=== PATIENT | male | born 1965 | race African-American/Black ===

== ENCOUNTER 2016-10-11 11:57 | Inpatient (IN) | payer BC ==
[2016-10-11 12:57] VITALS: BMI 33.7
--- NOTE | 2016-10-11 17:16 | HP ---
COWS - Scale Resting Pulse: 0= [place] 80 or Below Sweatin=Flushed/Facial Moisture Restless Observation: 1= Difficult to Sit Still Pupil Size: 0= Normal to Room Light Bone or Joint Aches: 2= Severe Diffuse Aches Runny Nose/ Eye Tearin= Runny Nose/Eyes GI Upset > 30mins: 2= Nausea/Diarrhea Tremor Observation: 2= Slight Tremor Visible Yawning Observation: 2= >3x During Session Anxiety or Irritability: 2=Irritable/Anxious Goose Flesh Skin: 3=Piloerection COWS Score: 18 CIWA Score - CIWA Score Nausea/Vomitin-No Nausea/No Vomiting Muscle Tremors: 4-Moderate,w/Arms Extend Anxiety: 3 Agitation: 4-Moderately Restless Paroxysmal Sweats: 3 Orientation: 0-Oriented Tacttile Disturbances: 0-None Auditory Disturbances: 0-None Visual Disturbances: 0-None Headache: 1-Very Mild CIWA-Ar Total Score: 15 Admission ROS BHS - HPI Chief Complaint: I need to stop using and get detox and then go to rehab. Allergies/Adverse Reactions: Allergies Allergy/AdvReac Type Severity Reaction Status Date / Time No Known Allergies Allergy Verified 10/11/16 16:50 History of Present Illness: pt is a 51yr old male with a history of heroin and alcohol dependence seeking detox for treatment. this is his first time in our detox facility. last detox was at [facility] 3months ago. Exam Limitations: No Limitations - Ebola screening Have you traveled outside of the country in the last 21 days: No Have you had contact with anyone from an Ebola affected area: No Have you been sick,other than usual withdrawal symptoms: No - Review of Systems Constitutional: Chills, Diaphoresis, Night Sweats, Unintentional Wgt. Loss EENT: reports: Tearing, Nose Congestion Respiratory: reports: No Symptoms reported Cardiac: reports: No Symptoms Reported GI: reports: Diarrhea, Poor Appetite, Poor Fluid Intake : reports: No Symptoms Reported Musculoskeletal: reports: No Symptoms Reported Integumentary: reports: Bruising, Flushing, Sweating Neuro: reports: Headache, Tingling, Tremors Endocrine: reports: Excessive Sweating, Flushing, Intolerance to Cold, Intolerance to Heat Hematology: reports: No Symptoms Reported Psychiatric: reports: No Sypmtoms Reported, Judgement Intact, Mood/Affect Appropiate, Orientated x3, Agitated, Anxious Other Systems: Reviewed and Negative Patient History - Patient Medical History Hx Anemia: No Hx Asthma: No Hx Chronic Obstructive Pulmonary Disease (COPD): No Hx Cancer: No Hx Cardiac Disorders: No Hx Congestive Heart Failure: No Hx Hypertension: No Hx Hypercholesterolemia: No Hx Pacemaker: No HX Cerebrovascular Accident: No Hx Seizures: No Hx Dementia: No Hx Diabetes: No Hx Gastrointestinal Disorders: No Hx Liver Disease: No Hx Genitourinary Disorders: No Hx Sexually Transmitted Disorders: No Hx Renal Disease (ESRD): No Hx Thyroid Disease: No Hx Human Immunodeficiency Virus (HIV): No (negative ) Hx Hepatitis C: No (negative) Hx Depression: No Hx Suicide Attempt: No (denies) Hx Bipolar Disorder: No Hx Schizophrenia: No - Patient Surgical History Past Surgical History: Yes Hx Neurologic Surgery: No Hx Cataract Extraction: No Hx Cardiac Surgery: No Hx Lung Surgery: No Hx Breast Surgery: No Hx Breast Biopsy: No Hx Abdominal Surgery: No Hx Appendectomy: No Hx Cholecystectomy: No Hx Genitourinary Surgery: No Hx Section: No Hx Orthopedic Surgery: Yes (right hip replacement in 01/2016/left hip replacement in 10/2015) Other Surgical History: torn cartilage, left knee in 10/2015, right rotator cuff in 2003 - PPD History Previous Implant?: Yes Documented Results: Positive w/o proof Implanted On Prior [facility] Admission?: No PPD to be Administered?: No - Reproductive History Patient is a Female of Child Bearing Age (11 -55 yrs old): No - Smoking Cessation Smoking history: Current every day smoker Have you smoked in the past 12 months: Yes Aproximately how many cigarettes per day: 10 Hx Chewing Tobacco Use: No Initiated information on smoking cessation: Yes 'Breaking Loose' booklet given: 10/11/16 - Substance & Tx. History Hx Alcohol Use: Yes Hx Substance Use: Yes Substance Use Type: Alcohol, Cocaine, Heroin Hx Substance Use Treatment: Yes (last detox at [facility] 3months ago) - Substances Abused Heroin Route: Inhalation Frequency: Daily Amount used: 6-7 bags Age of first use: 32 Date of Last Use: 10/11/16 Cocaine Route: Smoking Frequency: Daily Amount used: $50 Age of first use: 48 Date of Last Use: 10/09/16 Alcohol-vodka Route: Oral Frequency: Daily Amount used: 1 1/2 pts vodka Age of first use: 13 Date of Last Use: 10/10/16 Family Disease History - Family Disease History Family Disease History: Heart Disease: Mother Admission Physical Exam [facility] - Vital Signs Vital Signs: Vital Signs - 24 hr 10/11/16 10/11/16 12:56 12:57 Temperature 97.1 F L 97.1 F L Pulse Rate 71 71 Respiratory 18 18 Rate Blood Pressure 148/78 148/78 - Physical General Appearance: Yes: Appropriately Dressed, Moderate Distress, Obese, Tremorous, Irritable, Sweating, Anxious HEENTM: Yes: Normal Voice, Nasal Congestion, Rhinorrhea Respiratory: Yes: Lungs Clear, Normal Breath Sounds, No Respiratory Distress Neck: Yes: No masses,lesions,Nodules Breast: Yes: Within Normal Limits Cardiology: Yes: Regular Rhythm, Regular Rate, S1, S2 Abdominal: Yes: Normal Bowel Sounds, Non Tender, Soft Genitourinary: Yes: Within Normal Limits Back: Yes: Normal Inspection Musculoskeletal: Yes: full range of Motion, Gait Steady Extremities: Yes: Normal Capillary Refill, Normal Inspection, Non-Tender, Tremors Neurological: Yes: Fully Oriented, Alert, Normal Response Integumentary: Yes: Normal Color, Diaphoresis Lymphatic: Yes: Within Normal Limits - Diagnostic (1) Alcohol dependence with uncomplicated withdrawal Current Visit: Yes Status: Chronic (2) Opioid dependence with withdrawal Current Visit: Yes Status: Chronic (3) Cocaine dependence, uncomplicated Current Visit: Yes Status: Chronic (4) Nicotine dependence Current Visit: Yes Status: Chronic Qualifiers: Nicotine product type: cigarettes Substance use status: uncomplicated Qualified Code(s): F17.210 - Nicotine dependence, cigarettes, uncomplicated (5) PPD positive Current Visit: Yes Status: Chronic Comment: chest x-ray ordered (6) Hypothyroid Current Visit: Yes Status: Chronic Qualifiers: Hypothyroidism type: acquired Qualified Code(s): E03.9 - Hypothyroidism, unspecified (7) H/O sleep apnea Current Visit: No Status: Chronic Comment: pt does not use a sleep apnea machine (8) History of left hip replacement Current Visit: No Status: Chronic (9) History of right hip replacement Current Visit: No Status: Chronic Cleared for Admission [facility] - Detox or Rehab [facility] Level of Care: Medically Managed Detox Regimen/Protocol: Methadone/Librium BHS Breath Alcohol Content Breath Alcohol Content: 0 Urine Drug Screen - Results Drug Screen Negative: No Urine Drug Screen Results: AGUSTIN-Cocaine, OPI-Opiates, OXY-Oxycodone
[2016-10-11] MEDS ORDERED: MAGNESIUM HYDROX 2400MG/30ML ORAL SUSPENSION 30 ML CUP PO PRN (17:23)
[2016-10-11] MEDS ORDERED: ACETAMINOPHEN 325 MG TABLET (FP) PO PRN (17:23)
[2016-10-11] MEDS ORDERED: MAGNESIUM CITRATE 300 ML BOTTLE PO PRN (17:23)
[2016-10-11] MEDS ORDERED: P-EPHED 60MG/TRIPROLIDI 2.5MG TABLET PO PRN (17:23)
[2016-10-11] MEDS ORDERED: LOPERAMIDE HCL 2 MG CAPSULE PO PRN (17:23)
[2016-10-11] MEDS ORDERED: NICOTINE POLACRILEX 4 MG GUM BC PRN (17:23)
[2016-10-11] MEDS ORDERED: MAG HYDROX/AL HYDROX/SIMETH 30 ML UNIT-DOSE CUP PO PRN (17:23)
[2016-10-11] MEDS ORDERED: MENTHOL/PHENOL 1 EACH UD MM PRN (17:23)
[2016-10-11] MEDS ORDERED: IBUPROFEN 400 MG TABLET (FP) PO PRN (17:23)
[2016-10-11] MEDS ORDERED: IBUPROFEN 600 MG TABLET (FP) PO PRN (17:26)
[2016-10-11] MEDS: chlordiazePOXIDE HCL 25 MG CAPSULE PO SCH ×2 (18:10→22:25)
[2016-10-11] MEDS ORDERED: METHADONE HCL 10 MG TABLET (FOR DETOX USE ONLY) PO ONE ×2 (18:15→23:00)
[2016-10-11] MEDS ORDERED: chlordiazePOXIDE HCL 25 MG CAPSULE PO ONE (18:15)
[2016-10-11] MEDS: THIAMINE HCL 100 MG TABLET (FP) PO SCH (22:25)
[2016-10-12 00:07] LABS: URINE APPEARANCE SLCLOUDY; URINE BILIRUBIN NEGATIVE (NEGATIVE); URINE BLOOD NEGATIVE (NEGATIVE); URINE COLOR DKYELLOW; URINE GLUCOSE (UA) NEGATIVE (NEGATIVE); URINE KETONE NEGATIVE (NEGATIVE); URINE LEUK ESTERASE NEGATIVE (NEGATIVE); URINE NITRITE NEGATIVE (NEGATIVE); URINE PROTEIN NEGATIVE (NEGATIVE); URINE UROBILINOGEN 4.0 E.U/dl E.U./dl (0.2-1.0)
[2016-10-12] MEDS: chlordiazePOXIDE HCL 25 MG CAPSULE PO SCH ×4 (05:52→22:35)
[2016-10-12] MEDS: LEVOTHYROXINE NA 100 MCG TABLET (FP) PO SCH (07:03)
[2016-10-12] MEDS ORDERED: METHADONE HCL 10 MG TABLET (FOR DETOX USE ONLY) PO SCH (10:00)
--- NOTE | 2016-10-12 10:01 | EKG ---
Test Reason : Blood Pressure : / mmHG Vent. Rate : 059 BPM Atrial Rate : 059 BPM P-R Int : 170 ms QRS Dur : 100 ms QT Int : 420 ms P-R-T Axes : 032 035 051 degrees QTc Int : 415 ms SINUS BRADYCARDIA WITH OCCASIONAL PREMATURE VENTRICULAR COMPLEXES NONSPECIFIC T WAVE ABNORMALITY ABNORMAL ECG NO PREVIOUS ECGS AVAILABLE Confirmed by DAVID KAPLAN MD ([id number]) on 10/12/2016 10:00:51 AM Referred By: Confirmed By:DAVID KAPLNA MD
[2016-10-12 10:15] LABS: MCH 31.9 pg (25.7-33.7); MCHC 34.5 g/dl (32.0-35.9); MEAN CELL VOLUME 92.4 fl (80-96); MEAN PLT VOLUME 10.2 fl (7.5-11.1); PLATELET COUNT 223 K/MM3 (134-434); RDW 13.6 % (11.9-15.9); WHITE BLOOD COUNT 8.9 K/mm3 (4.0-10.0)
[2016-10-12] MEDS: PRENATAL VITAMINS W/ FOLIC ACID TABLET (FP) PO SCH (10:31)
[2016-10-12] MEDS: NICOTINE 21 MG/24 HOURS TOPICAL PATCH TD SCH (10:34)
[2016-10-12 11:15] LABS: ALBUMIN 3.7 g/dl (3.4-5.0); ALK PHOS 132 U/L (45-117); ANION GAP 10 (8-16); BILIRUBIN,TOTAL 0.5 mg/dL (0.2-1.0); CALCIUM 8.5 mg/dL (8.5-10.1); CO2 27 mmol/L (21-32); GLUCOSE,RANDOM 140 mg/dL (74-106); SGOT/AST 19 U/L (15-37); SGPT/ALT 25 U/L (12-78); TOT PROT 7.3 g/dl (6.4-8.2)
[2016-10-12] MEDS ORDERED: COLLOIDAL OATMEAL 1 BAR EACH TP PRN (11:50)
[2016-10-12] MEDS ORDERED: SODIUM CHLORIDE NASAL SPRAY 44 ML BOTTLE NS PRN (11:55)
[2016-10-12] MEDS ORDERED: ONDANSETRON *ODT* 4 MG TABLET SL PRN (12:04)
[2016-10-12] MEDS ORDERED: CYCLOBENZAPRINE HCL 10 MG TABLET (FP) PO PRN (12:45)
[2016-10-12] MEDS: AMMONIUM LACTATE 12% LOTION 225 GM BOTTLE TP SCH (13:51)
--- NOTE | 2016-10-12 16:10 | PN ---
S CIWA - CIWA Score Nausea/Vomitin Muscle Tremors: 1-None Visible, but [place] Anxiety: 4-Mod. Anxious/Guarded Agitation: 3 Paroxysmal Sweats: 3 Orientation: 0-Oriented Tacttile Disturbances: 3-Moderate Itch/Numb/Burn Auditory Disturbances: 0-None Visual Disturbances: 2-Mild Sensitivity Headache: 0-None Present CIWA-Ar Total Score: 19 S COWS - Scale Resting Pulse: 0= [place] 80 or Below Sweatin=Flushed/Facial Moisture Restless Observation: 1= Difficult to Sit Still Pupil Size: 0= Normal to Room Light Bone or Joint Aches: 2= Severe Diffuse Aches Runny Nose/ Eye Tearin= Nasal Congestion GI Upset > 30mins: 2= Nausea/Diarrhea Tremor Observation of Outstretched Hands: 2= Slight Tremor Visible Yawning Observation: 2= >3x During Session Anxiety or Irritability: 2=Irritable/Anxious Goose Flesh Skin: 0=Smooth Skin COWS Score: 14 S Progress Note (SOAP) Subjective: Nausea, Interrupted sleep, Diarrhea, Anxious, Sweating, Body Aches. Objective: PT. A & O X 3, OBSERVED AMBULATING ON UNIT. NO ACUTE DISTRESS. PATIENT DENIES CHEST PAIN. 10/12/16 16:06 Vital Signs Temperature 99.1 F 10/12/16 14:06 Pulse Rate 58 L 10/12/16 14:06 Respiratory Rate 18 10/12/16 14:06 Blood Pressure 151/89 10/12/16 14:06 O2 Sat by Pulse Oximetry (%) Laboratory Tests 10/11/16 10/12/16 10/12/16 20:22 06:10 06:10 WBC 8.9 RBC 3.93 L Hgb 12.5 Hct 36.3 MCV 92.4 MCHC 34.5 RDW 13.6 Plt Count 223 MPV 10.2 Sodium 141 Potassium 3.7 Chloride 104 Carbon Dioxide 27 Anion Gap 10 BUN 12 Creatinine 1.0 Creat Clearance w eGFR > 60 Random Glucose 140 H Calcium 8.5 Total Bilirubin 0.5 AST 19 ALT 25 Alkaline Phosphatase 132 H Total Protein 7.3 Albumin 3.7 TSH 24.50 H Urine Color Dkyellow Urine Appearance Slcloudy Urine pH 5.0 Ur Specific [place] > 1.030 H Urine Protein Negative Urine Glucose (UA) Negative Urine Ketones Negative Urine Blood Negative Urine Nitrite Negative Urine Bilirubin Negative Urine Urobilinogen 4.0 e.u/dl Ur Leukocyte Esterase Negative LABS NOTED. Assessment: 10/12/16 16:07 WITHDRAWAL SYMPTOMS. Plan: CONTINUE DETOX. BGM ACBK X 1 TOMORROW AM FOR ELEVATED ADMISSION RANDOM GLUCOSE LEVEL.
[2016-10-12] MEDS: THIAMINE HCL 100 MG TABLET (FP) PO SCH (22:35)
[2016-10-13] MEDS: diphenhydrAMINE HCL 50 MG CAPSULE PO PRN ×2 (01:52→22:02)
[2016-10-13] MEDS: chlordiazePOXIDE HCL 25 MG CAPSULE PO PRN (01:54)
[2016-10-13] MEDS: chlordiazePOXIDE HCL 25 MG CAPSULE PO SCH ×2 (05:41→10:32)
--- NOTE | 2016-10-13 07:25 | PN ---
BHS Progress Note Note: tsh noted 24 hold sythroid repeat tsh
[2016-10-13] MEDS: LEVOTHYROXINE NA 100 MCG TABLET (FP) PO SCH ×2 (07:26→09:32)
[2016-10-13] MEDS: PRENATAL VITAMINS W/ FOLIC ACID TABLET (FP) PO SCH (09:31)
[2016-10-13] MEDS: AMMONIUM LACTATE 12% LOTION 225 GM BOTTLE TP SCH (09:32)
[2016-10-13] MEDS: METHADONE HCL 5 MG TABLET (FOR DETOX USE ONLY) PO SCH (09:32)
[2016-10-13] MEDS: NICOTINE 21 MG/24 HOURS TOPICAL PATCH TD SCH (09:33)
--- NOTE | 2016-10-13 13:41 | PN ---
S CIWA - CIWA Score Nausea/Vomitin-Int. Nausea w/Dry Heave Muscle Tremors: 4-Moderate,w/Arms Extend Anxiety: 4-Mod. Anxious/Guarded Agitation: 2 Paroxysmal Sweats: No Perspiration Orientation: 0-Oriented Tacttile Disturbances: 1-Very Mild Itch/Numbness Auditory Disturbances: 0-None Visual Disturbances: 0-None Headache: 1-Very Mild CIWA-Ar Total Score: 16 BHS COWS - Scale Resting Pulse: 0= [place] 80 or Below Sweatin=Flushed/Facial Moisture Restless Observation: 3= Extraneous Movement Pupil Size: 0= Normal to Room Light Bone or Joint Aches: 2= Severe Diffuse Aches Runny Nose/ Eye Tearin= Nasal Congestion GI Upset > 30mins: 3= Vomiting/Diarrhea Tremor Observation of Outstretched Hands: 2= Slight Tremor Visible Yawning Observation: 0= None Anxiety or Irritability: 2=Irritable/Anxious Goose Flesh Skin: 0=Smooth Skin COWS Score: 15 S Progress Note (SOAP) Subjective: N/V/D, generalized body ache, back pain, interrupted sleep Objective: 10/13/16 13:38 Last Vital Signs Temp Pulse Resp BP Pulse Ox 98.5 F 66 18 152/86 10/13/16 13:16 10/13/16 13:16 10/13/16 13:16 10/13/16 13:16 Laboratory Tests 10/11/16 10/12/16 10/12/16 20:22 06:10 06:10 WBC 8.9 RBC 3.93 L Hgb 12.5 Hct 36.3 MCV 92.4 MCHC 34.5 RDW 13.6 Plt Count 223 MPV 10.2 Sodium 141 Potassium 3.7 Chloride 104 Carbon Dioxide 27 Anion Gap 10 BUN 12 Creatinine 1.0 Creat Clearance w eGFR > 60 POC Glucometer Random Glucose 140 H Calcium 8.5 Total Bilirubin 0.5 AST 19 ALT 25 Alkaline Phosphatase 132 H Total Protein 7.3 Albumin 3.7 TSH 24.50 H Urine Color Dkyellow Urine Appearance Slcloudy Urine pH 5.0 Ur Specific [place] > 1.030 H Urine Protein Negative Urine Glucose (UA) Negative Urine Ketones Negative Urine Blood Negative Urine Nitrite Negative Urine Bilirubin Negative Urine Urobilinogen 4.0 e.u/dl Ur Leukocyte Esterase Negative RPR Titer 10/12/16 10/13/16 06:10 05:43 WBC RBC Hgb Hct MCV MCHC RDW Plt Count MPV Sodium Potassium Chloride Carbon Dioxide Anion Gap BUN Creatinine Creat Clearance w eGFR POC Glucometer 173 Random Glucose Calcium Total Bilirubin AST ALT Alkaline Phosphatase Total Protein Albumin TSH Urine Color Urine Appearance Urine pH Ur Specific [place] Urine Protein Urine Glucose (UA) Urine Ketones Urine Blood Urine Nitrite Urine Bilirubin Urine Urobilinogen Ur Leukocyte Esterase RPR Titer Nonreactive Labs noted: TSH 24.50 Assessment: 10/13/16 13:39 Withdrawal symptoms Noted with hypothyroidism Plan: Continue detox Hypothyroidism: continue synthroid (recommend starting synthroid at 50mcg/day, discussed with Dr. Aggarwal), follow up with PCP post discharge for monitoring/management
[2016-10-13] MEDS: chlordiazePOXIDE 5 MG CAPSULE PO SCH ×2 (17:40→22:01)
[2016-10-13] MEDS: THIAMINE HCL 100 MG TABLET (FP) PO SCH (22:01)
[2016-10-14] MEDS: chlordiazePOXIDE HCL 25 MG CAPSULE PO PRN (02:25)
[2016-10-14] MEDS: guaiFENesin/D-METHORPHAN HB 10 ML UNIT-DOSE CUPS PO PRN ×2 (02:26→22:56)
[2016-10-14] MEDS: chlordiazePOXIDE 5 MG CAPSULE PO SCH ×2 (06:05→10:23)
[2016-10-14] MEDS: LEVOTHYROXINE NA 100 MCG TABLET (FP) PO SCH (06:05)
[2016-10-14] MEDS: METHADONE HCL 5 MG TABLET (FOR DETOX USE ONLY) PO SCH (10:22)
[2016-10-14] MEDS: AMMONIUM LACTATE 12% LOTION 225 GM BOTTLE TP SCH (10:23)
[2016-10-14] MEDS: PRENATAL VITAMINS W/ FOLIC ACID TABLET (FP) PO SCH (10:23)
[2016-10-14] MEDS: NICOTINE 21 MG/24 HOURS TOPICAL PATCH TD SCH (10:25)
--- NOTE | 2016-10-14 10:56 | PN ---
BHS Progress Note (SOAP) Subjective: Sweating,interrupted sleep,restless. Objective: 10/14/16 10:54 Vital Signs - 8 hr 10/14/16 10/14/16 10/14/16 03:30 06:25 09:48 Temperature 97.6 F 97.1 F L Pulse Rate 66 62 Respiratory 19 18 19 Rate Blood Pressure 158/98 150/97 Laboratory Tests 10/11/16 10/12/16 10/12/16 20:22 06:10 06:10 WBC 8.9 RBC 3.93 L Hgb 12.5 Hct 36.3 MCV 92.4 MCHC 34.5 RDW 13.6 Plt Count 223 MPV 10.2 Sodium 141 Potassium 3.7 Chloride 104 Carbon Dioxide 27 Anion Gap 10 BUN 12 Creatinine 1.0 Creat Clearance w eGFR > 60 POC Glucometer Random Glucose 140 H Calcium 8.5 Total Bilirubin 0.5 AST 19 ALT 25 Alkaline Phosphatase 132 H Total Protein 7.3 Albumin 3.7 TSH 24.50 H Urine Color Dkyellow Urine Appearance Slcloudy Urine pH 5.0 Ur Specific [place] > 1.030 H Urine Protein Negative Urine Glucose (UA) Negative Urine Ketones Negative Urine Blood Negative Urine Nitrite Negative Urine Bilirubin Negative Urine Urobilinogen 4.0 e.u/dl Ur Leukocyte Esterase Negative RPR Titer 10/12/16 10/13/16 10/14/16 06:10 05:43 06:04 WBC RBC Hgb Hct MCV MCHC RDW Plt Count MPV Sodium Potassium Chloride Carbon Dioxide Anion Gap BUN Creatinine Creat Clearance w eGFR POC Glucometer 173 222 Random Glucose Calcium Total Bilirubin AST ALT Alkaline Phosphatase Total Protein Albumin TSH Urine Color Urine Appearance Urine pH Ur Specific [place] Urine Protein Urine Glucose (UA) Urine Ketones Urine Blood Urine Nitrite Urine Bilirubin Urine Urobilinogen Ur Leukocyte Esterase RPR Titer Nonreactive labs noted,pt. did not take synthroid as prescribed. Assessment: 10/14/16 10:55 Withdrawal sx. Plan: Continue detox TFT
[2016-10-14] MEDS: cloNIDine HCL 0.1 MG TABLET PO SCH ×2 (13:01→22:28)
[2016-10-14] MEDS: chlordiazePOXIDE HCL 10 MG CAPSULE PO SCH ×2 (17:07→22:28)
[2016-10-14] MEDS: hydrOXYzine PAMOATE 50 MG CAPSULE (FP) PO PRN (19:55)
[2016-10-14] MEDS: THIAMINE HCL 100 MG TABLET (FP) PO SCH (22:28)
[2016-10-14] MEDS: diphenhydrAMINE HCL 50 MG CAPSULE PO PRN (22:28)
[2016-10-15] MEDS: hydrOXYzine PAMOATE 50 MG CAPSULE (FP) PO PRN (00:45)
[2016-10-15] MEDS: chlordiazePOXIDE HCL 10 MG CAPSULE PO SCH ×2 (05:34→10:20)
[2016-10-15] MEDS: LEVOTHYROXINE NA 100 MCG TABLET (FP) PO SCH (06:44)
[2016-10-15] MEDS ORDERED: METHADONE HCL 10 MG TABLET (FOR DETOX USE ONLY) PO SCH (10:00)
[2016-10-15] MEDS: NICOTINE 21 MG/24 HOURS TOPICAL PATCH TD SCH (10:17)
[2016-10-15] MEDS: PRENATAL VITAMINS W/ FOLIC ACID TABLET (FP) PO SCH (10:20)
[2016-10-15] MEDS: cloNIDine HCL 0.1 MG TABLET PO SCH ×2 (10:20→22:21)
[2016-10-15] MEDS: AMMONIUM LACTATE 12% LOTION 225 GM BOTTLE TP SCH (10:22)
--- NOTE | 2016-10-15 15:08 | PN ---
BHS Progress Note (SOAP) Subjective: Sweating,interrupted sleep,restless Objective: 10/15/16 15:07 Vital Signs - 8 hr 10/15/16 10/15/16 09:22 13:15 Temperature 96.7 F L 98.6 F Pulse Rate 69 64 Respiratory 18 18 Rate Blood Pressure 144/84 135/85 Laboratory Last Values WBC 8.9 K/mm3 (4.0-10.0) 10/12/16 06:10 RBC 3.93 M/mm3 (4.00-5.60) L 10/12/16 06:10 Hgb 12.5 GM/dL (11.7-16.9) 10/12/16 06:10 Hct 36.3 % (35.4-49) 10/12/16 06:10 MCV 92.4 fl (80-96) 10/12/16 06:10 MCHC 34.5 g/dl (32.0-35.9) 10/12/16 06:10 RDW 13.6 % (11.9-15.9) 10/12/16 06:10 Plt Count 223 K/MM3 (134-434) 10/12/16 06:10 MPV 10.2 fl (7.5-11.1) 10/12/16 06:10 Sodium 141 mmol/L (136-145) 10/12/16 06:10 Potassium 3.7 mmol/L (3.5-5.1) 10/12/16 06:10 Chloride 104 mmol/L (98-107) 10/12/16 06:10 Carbon Dioxide 27 mmol/L (21-32) 10/12/16 06:10 Anion Gap 10 (8-16) 10/12/16 06:10 BUN 12 mg/dL (7-18) 10/12/16 06:10 Creatinine 1.0 mg/dL (0.7-1.3) 10/12/16 06:10 Creat Clearance w eGFR > 60 (>60) 10/12/16 06:10 POC Glucometer 166 UNITS (()) 10/15/16 06:12 Random Glucose 140 mg/dL (74-106) H 10/12/16 06:10 Calcium 8.5 mg/dL (8.5-10.1) 10/12/16 06:10 Total Bilirubin 0.5 mg/dL (0.2-1.0) 10/12/16 06:10 AST 19 U/L (15-37) 10/12/16 06:10 ALT 25 U/L (12-78) 10/12/16 06:10 Alkaline Phosphatase 132 U/L (45-117) H 10/12/16 06:10 Total Protein 7.3 g/dl (6.4-8.2) 10/12/16 06:10 Albumin 3.7 g/dl (3.4-5.0) 10/12/16 06:10 TSH 21.20 uIU/ml (0.358-3.74) H D 10/15/16 07:00 Urine Color Dkyellow 10/11/16 20:22 Urine Appearance Slcloudy 10/11/16 20:22 Urine pH 5.0 (5.0-8.0) 10/11/16 20:22 Ur Specific [place] > 1.030 (1.005-1.025) H 10/11/16 20:22 Urine Protein Negative (NEGATIVE) 10/11/16 20:22 Urine Glucose (UA) Negative (NEGATIVE) 10/11/16 20:22 Urine Ketones Negative (NEGATIVE) 10/11/16 20:22 Urine Blood Negative (NEGATIVE) 10/11/16 20:22 Urine Nitrite Negative (NEGATIVE) 10/11/16 20:22 Urine Bilirubin Negative (NEGATIVE) 10/11/16 20:22 Urine Urobilinogen 4.0 e.u/dl E.U./dl (0.2-1.0) 10/11/16 20:22 Ur Leukocyte Esterase Negative (NEGATIVE) 10/11/16 20:22 RPR Titer Nonreactive (NONREACTIVE) 10/12/16 06:10 labs noted Assessment: 10/15/16 15:08 Withdrawal sx. Plan: Continue detox
[2016-10-15] MEDS: guaiFENesin/D-METHORPHAN HB 10 ML UNIT-DOSE CUPS PO PRN (20:01)
[2016-10-15] MEDS: diphenhydrAMINE HCL 50 MG CAPSULE PO PRN (22:20)
[2016-10-15] MEDS: THIAMINE HCL 100 MG TABLET (FP) PO SCH (22:20)
[2016-10-16] MEDS: diphenhydrAMINE HCL 50 MG CAPSULE PO PRN (00:36)
[2016-10-16] MEDS ORDERED: METHADONE HCL 5 MG TABLET (FOR DETOX USE ONLY) PO SCH (06:00)
[2016-10-16 06:06] LABS: FREE T3 1.9 pg/mL (2.0-4.4)
[2016-10-16] MEDS: LEVOTHYROXINE NA 100 MCG TABLET (FP) PO SCH (07:24)
[2016-10-16 09:48] VITALS: BP 138/92; PULSE 72; TEMP 98.5
--- NOTE | 2016-10-16 12:28 | DS ---
[facility] Detox Discharge Summary Admission Date: 10/11/16 Discharge Date: 10/16/16 - History Present History: Alcohol Dependence, Cocaine Dependence, Opioid Dependence Additional Comments: ADVISED PATIENT TO FOLLOW-UP WITH [facility] AFTER DISCHARGE FROM DETOX FOR GENERAL MEDICAL ASSESSMENT. Pertinent Past History: History of Positive PPD, History of both Right and Left Hip Replacement, Sleep Apnea, Hypothyroidism. - Physical Exam Results Vital Signs: Vital Signs Temperature 98.5 F 10/16/16 09:47 Pulse Rate 72 10/16/16 09:47 Respiratory Rate 18 10/16/16 09:47 Blood Pressure 138/92 10/16/16 09:47 O2 Sat by Pulse Oximetry (%) Pertinent Admission Physical Exam Findings: WITHDRAWAL SYMPTOMS. Laboratory Tests 10/11/16 10/12/16 10/12/16 20:22 06:10 06:10 WBC 8.9 RBC 3.93 L Hgb 12.5 Hct 36.3 MCV 92.4 MCHC 34.5 RDW 13.6 Plt Count 223 MPV 10.2 Sodium 141 Potassium 3.7 Chloride 104 Carbon Dioxide 27 Anion Gap 10 BUN 12 Creatinine 1.0 Creat Clearance w eGFR > 60 POC Glucometer Random Glucose 140 H Calcium 8.5 Total Bilirubin 0.5 AST 19 ALT 25 Alkaline Phosphatase 132 H Total Protein 7.3 Albumin 3.7 Free T4 [place] TSH 24.50 H Free T3 Urine Color Dkyellow Urine Appearance Slcloudy Urine pH 5.0 Ur Specific [place] > 1.030 H Urine Protein Negative Urine Glucose (UA) Negative Urine Ketones Negative Urine Blood Negative Urine Nitrite Negative Urine Bilirubin Negative Urine Urobilinogen 4.0 e.u/dl Ur Leukocyte Esterase Negative RPR Titer 10/12/16 10/13/16 10/14/16 06:10 05:43 06:04 WBC RBC Hgb Hct MCV MCHC RDW Plt Count MPV Sodium Potassium Chloride Carbon Dioxide Anion Gap BUN Creatinine Creat Clearance w eGFR POC Glucometer 173 222 Random Glucose Calcium Total Bilirubin AST ALT Alkaline Phosphatase Total Protein Albumin Free T4 TSH Free T3 Urine Color Urine Appearance Urine pH Ur Specific [place] Urine Protein Urine Glucose (UA) Urine Ketones Urine Blood Urine Nitrite Urine Bilirubin Urine Urobilinogen Ur Leukocyte Esterase RPR Titer Nonreactive 10/15/16 10/15/16 10/15/16 06:12 07:00 07:00 WBC RBC Hgb Hct MCV MCHC RDW Plt Count MPV Sodium Potassium Chloride Carbon Dioxide Anion Gap BUN Creatinine Creat Clearance w eGFR POC Glucometer 166 Random Glucose Calcium Total Bilirubin AST ALT Alkaline Phosphatase Total Protein Albumin Free T4 [place] 0.71 L TSH 21.20 H D Free T3 1.9 L Urine Color Urine Appearance Urine pH Ur Specific [place] Urine Protein Urine Glucose (UA) Urine Ketones Urine Blood Urine Nitrite Urine Bilirubin Urine Urobilinogen Ur Leukocyte Esterase RPR Titer LABS NOTED. - Treatment Hospital Course: Detox Protocol Followed, Detoxed Safely, Responded well, Discharged Condition Good, Rehab Referral Accepted Patient has Accepted a Rehab Referral to: [facility]. - Medication Discharge Medications: Ambulatory Orders Levothyroxine Sodium [Levo-T] 300 mcg PO DAILY 10/11/16 - Diagnosis (1) Alcohol dependence with uncomplicated withdrawal Status: Acute (2) Cocaine dependence, uncomplicated Status: Acute (3) H/O sleep apnea Status: Chronic (4) History of left hip replacement Status: Chronic (5) History of right hip replacement Status: Chronic (6) Hypothyroid Status: Chronic Qualifiers: Hypothyroidism type: acquired Qualified Code(s): E03.9 - Hypothyroidism, unspecified (7) Nicotine dependence Status: Chronic Qualifiers: Nicotine product type: cigarettes Substance use status: uncomplicated Qualified Code(s): F17.210 - Nicotine dependence, cigarettes, uncomplicated (8) Opioid dependence with withdrawal Status: Acute (9) PPD positive Status: Chronic - AMA Did Patient Leave Against Medical Advice: No
== END 2016-10-16 10:31 | disposition home or self-care (01) | DRG 773 ==
LOC: YASAS 11:57 → Y3N 17:30
PROVIDERS: ADMIT Internal Medicine; ATTEND Internal Medicine
PROC: HZ2ZZZZ Detoxification Services for Substance Abuse Treatment (ICD-10-PCS; principal; 2016-10-11)
DX: F11.23 Opioid dependence with withdrawal (principal); F10.230 Alcohol dependence with withdrawal, uncomplicated; F14.20 Cocaine dependence, uncomplicated; F17.210 Nicotine dependence, cigarettes, uncomplicated; E03.9 Hypothyroidism, unspecified; E66.9 Obesity, unspecified; Z68.33 Body mass index [BMI] 33.0-33.9, adult; G47.30 Sleep apnea, unspecified; R76.11 Nonspecific reaction to tuberculin skin test without active tuberculosis; Z96.643 Presence of artificial hip joint, bilateral
CPT/HCPCS: 36415; 71020-TC; 80053; 81003; 84439; 84443; 84481; 85027; 86593; 93005; 93010

== ENCOUNTER 2016-12-17 11:34 | Inpatient (IN) | payer BC ==
[2016-12-17 12:41] VITALS: BMI 32.7
--- NOTE | 2016-12-17 15:14 | HP ---
COWS - Scale Resting Pulse: 0= [place] 80 or Below Sweatin=Flushed/Facial Moisture Restless Observation: 3= Extraneous Movement Pupil Size: 2= Moderately Dilated Bone or Joint Aches: 2= Severe Diffuse Aches Runny Nose/ Eye Tearin= Runny Nose/Eyes GI Upset > 30mins: 2= Nausea/Diarrhea Tremor Observation: 2= Slight Tremor Visible Yawning Observation: 1= 1-2x During Session Anxiety or Irritability: 2=Irritable/Anxious Goose Flesh Skin: 0=Smooth Skin COWS Score: 18 CIWA Score - CIWA Score Nausea/Vomitin Muscle Tremors: 3 Anxiety: 3 Agitation: 3 Paroxysmal Sweats: 1-Minimal Palms Moist Orientation: 0-Oriented Tacttile Disturbances: 2-Mild Itch/Numbness/Burn Auditory Disturbances: 2-Mild Harshness/Frighten Visual Disturbances: 2-Mild Sensitivity Headache: 2-Mild CIWA-Ar Total Score: 21 Admission ROS BHS - HPI Chief Complaint: i need help to stop using heroin,alcohol,and cocaine dependence Allergies/Adverse Reactions: Allergies Allergy/AdvReac Type Severity Reaction Status Date / Time No Known Allergies Allergy Verified 12/17/16 15:07 History of Present Illness: this 51 years old male with heroin,alcohol and cocaine dependence,seeking detox, [facility] to 10/16/16 multiple admissions in detox anxiety and ptsd hypothyroidism nicotine dependence s/p bilateral hips replacement longest period of sobriety 6 years Exam Limitations: No Limitations - Ebola screening Have you traveled outside of the country in the last 21 days: No Have you been sick,other than usual withdrawal symptoms: No - Review of Systems Constitutional: Chills, Loss of Appetite, Malaise, Night Sweats, Changes in sleep, Weakness EENT: reports: Tearing, Nose Congestion Respiratory: reports: No Symptoms reported Cardiac: reports: No Symptoms Reported GI: reports: Diarrhea, Nausea, Vomiting : reports: No Symptoms Reported Musculoskeletal: reports: Back Pain, Joint Pain, Muscle Pain Integumentary: reports: Dryness Neuro: reports: Headache, Tremors, Weakness Endocrine: reports: No Symptoms Reported Hematology: reports: No Symptoms Reported Psychiatric: reports: No Sypmtoms Reported, Judgement Intact, Mood/Affect Appropiate, Orientated x3, Depressed, other (ptsd) Other Systems: Reviewed and Negative Patient History - Patient Medical History Hx Anemia: No Hx Asthma: No Hx Chronic Obstructive Pulmonary Disease (COPD): No Hx Cancer: No Hx Cardiac Disorders: No Hx Congestive Heart Failure: No Hx Hypertension: No Hx Hypercholesterolemia: No Hx Pacemaker: No HX Cerebrovascular Accident: No Hx Seizures: No Hx Dementia: No Hx Diabetes: No Hx Gastrointestinal Disorders: No Hx Liver Disease: No Hx Genitourinary Disorders: No Hx Sexually Transmitted Disorders: No Hx Renal Disease (ESRD): No Hx Thyroid Disease: No Hx Human Immunodeficiency Virus (HIV): No (negative ) Hx Hepatitis C: No (negative) Hx Depression: No Hx Suicide Attempt: No (denies) Hx Bipolar Disorder: No Hx Schizophrenia: No - Patient Surgical History Past Surgical History: Yes Hx Neurologic Surgery: No Hx Cataract Extraction: No Hx Cardiac Surgery: No Hx Lung Surgery: No Hx Breast Surgery: No Hx Breast Biopsy: No Hx Abdominal Surgery: No Hx Appendectomy: No Hx Cholecystectomy: No Hx Genitourinary Surgery: No Hx Section: No Hx Orthopedic Surgery: Yes (right hip replacement in 01/2016/left hip replacement in 10/2015) Other Surgical History: torn cartilage, left knee in 10/2015, right rotator cuff in 2003 - PPD History Previous Implant?: Yes Documented Results: Positive w/proof PPD to be Administered?: No - Smoking Cessation Smoking history: Current every day smoker Have you smoked in the past 12 months: Yes Aproximately how many cigarettes per day: 10 Hx Chewing Tobacco Use: No Initiated information on smoking cessation: Yes 'Breaking Loose' booklet given: 12/17/16 - Substances Abused Heroin Route: Inhalation Frequency: Daily Amount used: 40 bags Age of first use: 32 Date of Last Use: 12/17/16 Cocaine Route: Inhalation Frequency: Daily Amount used: 1 gm. Age of first use: 38 Date of Last Use: 12/17/16 Alcohol-vodka/beer Route: Oral Frequency: Daily Amount used: 3 pts./2-6 pks. Age of first use: 10 Date of Last Use: 12/15/16 Family Disease History - Family Disease History Family Disease History: Heart Disease: Mother Admission Physical Exam BHS - Vital Signs Vital Signs: Vital Signs - 24 hr 12/17/16 12:39 Temperature 98.5 F Pulse Rate 67 Respiratory 18 Rate Blood Pressure 103/67 - Physical General Appearance: Yes: Moderate Distress, Tremorous, Irritable, Sweating, Anxious HEENTM: Yes: Normal ENT Inspection, MICHAEL, Pharynx Normal Respiratory: Yes: Lungs Clear, Normal Breath Sounds, No Respiratory Distress Neck: Yes: Within Normal Limits, Other (hypothyroidism) Breast: Yes: Within Normal Limits Cardiology: Yes: Within Normal Limits, Regular Rhythm, Regular Rate, S1, S2 Abdominal: Yes: Within Normal Limits, Normal Bowel Sounds, Non Tender, Flat, Soft Genitourinary: Yes: Within Normal Limits Back: Yes: Muscle Spasm Musculoskeletal: Yes: Back pain, Muscle Pain Extremities: Yes: Within Normal Limits, Normal Range of Motion, Tremors Neurological: Yes: senior technical project manager II-XII NML intact, Fully Oriented, Alert, Motor Strength 5/5 Integumentary: Yes: Dry Lymphatic: Yes: Within Normal Limits - Diagnostic (1) Opioid dependence with withdrawal Current Visit: No Status: Acute (2) Alcohol dependence with uncomplicated withdrawal Current Visit: No Status: Acute (3) Cocaine dependence, uncomplicated Current Visit: No Status: Acute (4) H/O sleep apnea Current Visit: No Status: Chronic Comment: pt does not use a sleep apnea machine (5) History of left hip replacement Current Visit: No Status: Chronic (6) History of right hip replacement Current Visit: No Status: Chronic (7) Hypothyroid Current Visit: No Status: Chronic Qualifiers: Hypothyroidism type: acquired Qualified Code(s): E03.9 - Hypothyroidism, unspecified (8) Nicotine dependence Current Visit: No Status: Chronic Qualifiers: Nicotine product type: cigarettes Substance use status: uncomplicated Qualified Code(s): F17.210 - Nicotine dependence, cigarettes, uncomplicated (9) PPD positive Current Visit: No Status: Chronic Comment: chest x-ray ordered Cleared for Admission [facility] - Detox or Rehab [facility] Level of Care: Medically Managed Detox Regimen/Protocol: Methadone/Librium [facility] Breath Alcohol Content Breath Alcohol Content: 0 Urine Drug Screen - Results Drug Screen Negative: No Urine Drug Screen Results: AGUSTIN-Cocaine, OPI-Opiates
[2016-12-17] MEDS ORDERED: MAG HYDROX/AL HYDROX/SIMETH 30 ML UNIT-DOSE CUP PO PRN (15:28)
[2016-12-17] MEDS ORDERED: guaiFENesin/D-METHORPHAN HB 10 ML UNIT-DOSE CUPS PO PRN (15:28)
[2016-12-17] MEDS ORDERED: MENTHOL/PHENOL 1 EACH UD MM PRN (15:28)
[2016-12-17] MEDS ORDERED: NICOTINE POLACRILEX 2 MG GUM BC PRN (15:28)
[2016-12-17] MEDS ORDERED: MAGNESIUM HYDROX 2400MG/30ML ORAL SUSPENSION 30 ML CUP PO PRN (15:28)
[2016-12-17] MEDS ORDERED: LOPERAMIDE HCL 2 MG CAPSULE PO PRN (15:28)
[2016-12-17] MEDS ORDERED: ACETAMINOPHEN 325 MG TABLET (FP) PO PRN (15:28)
[2016-12-17] MEDS ORDERED: MAGNESIUM CITRATE 300 ML BOTTLE PO PRN (15:28)
[2016-12-17] MEDS ORDERED: P-EPHED 60MG/TRIPROLIDI 2.5MG TABLET PO PRN (15:28)
[2016-12-17] MEDS ORDERED: IBUPROFEN 400 MG TABLET (FP) PO PRN (15:28)
[2016-12-17] MEDS ORDERED: chlordiazePOXIDE HCL 25 MG CAPSULE PO ONE (16:00)
[2016-12-17] MEDS ORDERED: METHADONE HCL 10 MG TABLET (FOR DETOX USE ONLY) PO ONE ×2 (16:15→23:00)
[2016-12-17] MEDS: chlordiazePOXIDE HCL 25 MG CAPSULE PO SCH ×2 (16:54→22:21)
[2016-12-17] MEDS: NICOTINE 21 MG/24 HOURS TOPICAL PATCH TD SCH (16:56)
[2016-12-17] MEDS: diphenhydrAMINE HCL 50 MG CAPSULE PO PRN (22:20)
[2016-12-17] MEDS: THIAMINE HCL 100 MG TABLET (FP) PO SCH (22:20)
[2016-12-17] MEDS: CYCLOBENZAPRINE HCL 10 MG TABLET (FP) PO PRN (22:21)
[2016-12-17] MEDS: cloNIDine HCL 0.1 MG TABLET PO SCH (22:21)
[2016-12-18] MEDS: chlordiazePOXIDE HCL 25 MG CAPSULE PO SCH ×4 (05:58→22:27)
[2016-12-18] MEDS: LEVOTHYROXINE NA 100 MCG TABLET (FP) PO SCH (06:59)
--- NOTE | 2016-12-18 07:37 | CONSULT ---
[facility] Psychiatric Consult - Data Date of interview: 12/18/16 Admission source: [facility] Identifying data: This is 51 years old male with no psychiatrioc hospitalization history intoxicated with: Opioids, Cocaine and Nicotine Substance Abuse History: Drug Screen Negative: No. Urine Drug Screen Results: AGUSTIN-Cocaine, OPI-Opiates. - Smoking Cessation. Smoking history: Current every day smoker. Have you smoked in the past 12 months: Yes. Aproximately how many cigarettes per day: 10. Hx Chewing Tobacco Use: No. Initiated information on smoking cessation: Yes. 'Breaking Loose' booklet given: 12/17/16 Medical History: PPD + history, Hypothyroiditis, Bilateral Hip Replacement syrgery history, Psychiatric History: Reports history of anxiety, depression and insomnia. Reports taking prior to admission: Trazodone 50mg po qhs Physical/Sexual Abuse/Trauma History: Denies Additional Comment: Drug Screen Negative: No. Urine Drug Screen Results: AGUSTIN- Cocaine, OPI-Opiates Mental Status Exam - Mental Status Exam Alert and Oriented to: Person Cognitive Function: Fair Patient Appearance: Unkempt Mood: Anxious Affect: Mood Congruent Patient Behavior: Talkative Speech Pattern: Appropriate Voice Loudness: Mildly Soft/Quiet Thought Process: Circumstantial Thought Disorder: Being Controlled Hallucinations: Denies Suicidal Ideation: Denies Homicidal Ideation: Denies Insight/Judgement: Fair Sleep: Difficulty falling asleep Appetite: Fair Muscle strength/Tone: Mild Hypotonicity Gait/Station: Shuffling Additional Comments: Trazodone 50mg po qhs Psychiatric Findings - Problem List ([place] 1, 2,3) (1) Alcohol dependence with uncomplicated withdrawal Current Visit: No Status: Acute (2) Cocaine dependence, uncomplicated Current Visit: No Status: Acute (3) Opioid dependence with withdrawal Current Visit: No Status: Acute (4) Nicotine dependence Current Visit: No Status: Chronic Qualifiers: Nicotine product type: cigarettes Substance use status: uncomplicated Qualified Code(s): F17.210 - Nicotine dependence, cigarettes, uncomplicated (5) Drug-induced mood disorder Current Visit: Yes Status: Acute - Initial Treatment Plan Initial Treatment Plan: Trazodone 50mg po qhs
[2016-12-18] MEDS ORDERED: TRIMETHOBENZAMIDE HCL 200MG/2ML INJ IM PRN (09:54)
[2016-12-18] MEDS ORDERED: METHADONE HCL 10 MG TABLET (FOR DETOX USE ONLY) PO SCH (10:00)
[2016-12-18 10:07] LABS: MCH 30.9 pg (25.7-33.7); MCHC 33.6 g/dl (32.0-35.9); MEAN CELL VOLUME 91.9 fl (80-96); MEAN PLT VOLUME 9.2 fl (7.5-11.1); PLATELET COUNT 211 K/MM3 (134-434); RDW 13.5 % (11.9-15.9); WHITE BLOOD COUNT 8.3 K/mm3 (4.0-10.0)
[2016-12-18 10:32] LABS: ALBUMIN 3.3 g/dl (3.4-5.0); ANION GAP 7 (8-16); CALCIUM 9.1 mg/dL (8.5-10.1); CO2 31 mmol/L (21-32)
[2016-12-18 10:37] LABS: ALK PHOS 99 U/L (45-117); BILIRUBIN,TOTAL 0.7 mg/dL (0.2-1.0); CREATININE 1.1 mg/dL (0.7-1.3); GLUCOSE,RANDOM 164 mg/dL (74-106); SGOT/AST 9 U/L (15-37); SGPT/ALT 18 U/L (12-78); TOT PROT 6.8 g/dl (6.4-8.2)
[2016-12-18] MEDS: PRENATAL VITAMINS W/ FOLIC ACID TABLET (FP) PO SCH (10:50)
[2016-12-18] MEDS: cloNIDine HCL 0.1 MG TABLET PO SCH ×2 (10:50→22:27)
[2016-12-18] MEDS: CYCLOBENZAPRINE HCL 10 MG TABLET (FP) PO PRN ×2 (11:00→22:27)
--- NOTE | 2016-12-18 11:36 | EKG ---
Test Reason : Blood Pressure : / mmHG Vent. Rate : 057 BPM Atrial Rate : 057 BPM P-R Int : 164 ms QRS Dur : 090 ms QT Int : 448 ms P-R-T Axes : 044 048 060 degrees QTc Int : 436 ms SINUS BRADYCARDIA OTHERWISE NORMAL ECG WHEN COMPARED WITH ECG OF 11-OCT-2016 17:11, PREMATURE VENTRICULAR COMPLEXES ARE NO LONGER PRESENT NONSPECIFIC T WAVE ABNORMALITY, IMPROVED IN LATERAL LEADS Confirmed by SHANEL ROJAS, JONO ([id number]) on 12/18/2016 11:35:53 AM Referred By: Marquise Kaye Confirmed By:JONO UGARTE MD
[2016-12-18] MEDS: chlordiazePOXIDE HCL 25 MG CAPSULE PO PRN ×2 (12:16→12:19)
[2016-12-18] MEDS: NICOTINE 21 MG/24 HOURS TOPICAL PATCH TD SCH (12:17)
[2016-12-18] MEDS: hydrOXYzine PAMOATE 50 MG CAPSULE (FP) PO PRN (12:19)
--- NOTE | 2016-12-18 12:34 | PN ---
[facility] CIWA - CIWA Score Nausea/Vomitin-Int. Nausea w/Dry Heave Muscle Tremors: 3 Anxiety: 3 Agitation: 3 Paroxysmal Sweats: 1-Minimal Palms Moist Orientation: 0-Oriented Tacttile Disturbances: 1-Very Mild Itch/Numbness Auditory Disturbances: 1-Very Mild Visual Disturbances: 1-Very Mild Sensitivity Headache: 2-Mild CIWA-Ar Total Score: 19 BHS COWS - Scale Resting Pulse: 0= [place] 80 or Below Sweatin= Chills/Flushing Restless Observation: 3= Extraneous Movement Pupil Size: 1= Pupils >than Normal Bone or Joint Aches: 2= Severe Diffuse Aches Runny Nose/ Eye Tearin= Runny Nose/Eyes GI Upset > 30mins: 2= Nausea/Diarrhea Tremor Observation of Outstretched Hands: 2= Slight Tremor Visible Yawning Observation: 1= 1-2x During Session Anxiety or Irritability: 2=Irritable/Anxious Goose Flesh Skin: 0=Smooth Skin COWS Score: 16 S Progress Note (SOAP) Subjective: ALERT,IRRITABLE,ANXIOUS,INTERRUPTED SLEEP,PAIN IN THE BODY BACK,NAUSEA,VOMITING, Objective: 12/18/16 12:32 Vital Signs Temperature 97.0 F L 12/18/16 09:54 Pulse Rate 53 L 12/18/16 09:54 Respiratory Rate 20 12/18/16 09:54 Blood Pressure 146/83 12/18/16 09:54 O2 Sat by Pulse Oximetry (%) Assessment: 12/18/16 12:32 EKG SINUS BRADYCARDIA 57/MIN NO CHEST PAIN,NO SOB,NO DIZZINESS Laboratory Last Values WBC 8.3 K/mm3 (4.0-10.0) 12/18/16 07:00 RBC 3.77 M/mm3 (4.00-5.60) L 12/18/16 07:00 Hgb 11.7 GM/dL (11.7-16.9) 12/18/16 07:00 Hct 34.7 % (35.4-49) L 12/18/16 07:00 MCV 91.9 fl (80-96) 12/18/16 07:00 MCH 30.9 pg (25.7-33.7) 12/18/16 07:00 MCHC 33.6 g/dl (32.0-35.9) 12/18/16 07:00 RDW 13.5 % (11.9-15.9) 12/18/16 07:00 Plt Count 211 K/MM3 (134-434) 12/18/16 07:00 MPV 9.2 fl (7.5-11.1) 12/18/16 07:00 Sodium 139 mmol/L (136-145) 12/18/16 07:00 Potassium 3.7 mmol/L (3.5-5.1) 12/18/16 07:00 Chloride 101 mmol/L (98-107) 12/18/16 07:00 Carbon Dioxide 31 mmol/L (21-32) 12/18/16 07:00 Anion Gap 7 (8-16) L 12/18/16 07:00 BUN 10 mg/dL (7-18) 12/18/16 07:00 Creatinine 1.1 mg/dL (0.7-1.3) 12/18/16 07:00 Creat Clearance w eGFR > 60 (>60) 12/18/16 07:00 Random Glucose 164 mg/dL (74-106) H 12/18/16 07:00 Calcium 9.1 mg/dL (8.5-10.1) 12/18/16 07:00 Total Bilirubin 0.7 mg/dL (0.2-1.0) D 12/18/16 07:00 AST 9 U/L (15-37) L D 12/18/16 07:00 ALT 18 U/L (12-78) D 12/18/16 07:00 Alkaline Phosphatase 99 U/L (45-117) D 12/18/16 07:00 Total Protein 6.8 g/dl (6.4-8.2) 12/18/16 07:00 Albumin 3.3 g/dl (3.4-5.0) L 12/18/16 07:00 Plan: WITHDRAWAL SYMPTOM,FASTING GLUCOSE IN AM
[2016-12-18] MEDS: THIAMINE HCL 100 MG TABLET (FP) PO SCH (22:27)
[2016-12-18] MEDS: traZODone HCL 50 MG TABLET (FP) PO SCH (22:27)
[2016-12-19] MEDS: chlordiazePOXIDE HCL 25 MG CAPSULE PO PRN ×2 (03:11→17:07)
[2016-12-19] MEDS: LEVOTHYROXINE NA 100 MCG TABLET (FP) PO SCH (06:11)
[2016-12-19] MEDS: chlordiazePOXIDE HCL 25 MG CAPSULE PO SCH ×2 (06:11→11:22)
[2016-12-19] MEDS: NICOTINE 21 MG/24 HOURS TOPICAL PATCH TD SCH (11:00)
--- NOTE | 2016-12-19 11:08 | PN ---
[facility] CIWA - CIWA Score Nausea/Vomitin Muscle Tremors: 3 Anxiety: 3 Agitation: 2 Paroxysmal Sweats: 1-Minimal Palms Moist Orientation: 0-Oriented Tacttile Disturbances: 1-Very Mild Itch/Numbness Auditory Disturbances: 1-Very Mild Visual Disturbances: 0-None Headache: 2-Mild CIWA-Ar Total Score: 16 BHS COWS - Scale Resting Pulse: 0= [place] 80 or Below Sweatin= Chills/Flushing Restless Observation: 3= Extraneous Movement Pupil Size: 1= Pupils >than Normal Bone or Joint Aches: 2= Severe Diffuse Aches Runny Nose/ Eye Tearin= Runny Nose/Eyes GI Upset > 30mins: 2= Nausea/Diarrhea Tremor Observation of Outstretched Hands: 2= Slight Tremor Visible Yawning Observation: 1= 1-2x During Session Anxiety or Irritability: 2=Irritable/Anxious Goose Flesh Skin: 0=Smooth Skin COWS Score: 16 [facility] Progress Note (SOAP) Subjective: ALERT,IRRTIABLE,ANXIOUS,INTERRUPTED SLEEP,,PAIN IN THE BODY AND BACK Objective: 12/19/16 11:07 Vital Signs Temperature 98.4 F 12/19/16 09:53 Pulse Rate 102 H 12/19/16 09:53 Respiratory Rate 18 12/19/16 09:53 Blood Pressure 151/74 12/19/16 09:53 O2 Sat by Pulse Oximetry (%) Laboratory Last Values WBC 8.3 K/mm3 (4.0-10.0) 12/18/16 07:00 RBC 3.77 M/mm3 (4.00-5.60) L 12/18/16 07:00 Hgb 11.7 GM/dL (11.7-16.9) 12/18/16 07:00 Hct 34.7 % (35.4-49) L 12/18/16 07:00 MCV 91.9 fl (80-96) 12/18/16 07:00 MCH 30.9 pg (25.7-33.7) 12/18/16 07:00 MCHC 33.6 g/dl (32.0-35.9) 12/18/16 07:00 RDW 13.5 % (11.9-15.9) 12/18/16 07:00 Plt Count 211 K/MM3 (134-434) 12/18/16 07:00 MPV 9.2 fl (7.5-11.1) 12/18/16 07:00 Sodium 139 mmol/L (136-145) 12/18/16 07:00 Potassium 3.7 mmol/L (3.5-5.1) 12/18/16 07:00 Chloride 101 mmol/L (98-107) 12/18/16 07:00 Carbon Dioxide 31 mmol/L (21-32) 12/18/16 07:00 Anion Gap 7 (8-16) L 12/18/16 07:00 BUN 10 mg/dL (7-18) 12/18/16 07:00 Creatinine 1.1 mg/dL (0.7-1.3) 12/18/16 07:00 Creat Clearance w eGFR > 60 (>60) 12/18/16 07:00 Random Glucose 164 mg/dL (74-106) H 12/18/16 07:00 Calcium 9.1 mg/dL (8.5-10.1) 12/18/16 07:00 Total Bilirubin 0.7 mg/dL (0.2-1.0) D 12/18/16 07:00 AST 9 U/L (15-37) L D 12/18/16 07:00 ALT 18 U/L (12-78) D 12/18/16 07:00 Alkaline Phosphatase 99 U/L (45-117) D 12/18/16 07:00 Total Protein 6.8 g/dl (6.4-8.2) 12/18/16 07:00 Albumin 3.3 g/dl (3.4-5.0) L 12/18/16 07:00 Assessment: 12/19/16 11:08 WITHDRAWAL SYMPTOM Plan: CONTINUE DETOX,FASTING GLUCOSE IN AM,BGM BID
[2016-12-19] MEDS: METHADONE HCL 5 MG TABLET (FOR DETOX USE ONLY) PO SCH (11:22)
[2016-12-19] MEDS: cloNIDine HCL 0.1 MG TABLET PO SCH ×2 (11:22→22:16)
[2016-12-19] MEDS: PRENATAL VITAMINS W/ FOLIC ACID TABLET (FP) PO SCH (11:22)
[2016-12-19] MEDS: CYCLOBENZAPRINE HCL 10 MG TABLET (FP) PO PRN ×2 (11:22→22:16)
[2016-12-19 14:38] LABS: URINE APPEARANCE CLEAR; URINE BILIRUBIN NEGATIVE (NEGATIVE); URINE BLOOD NEGATIVE (NEGATIVE); URINE COLOR STRAW; URINE GLUCOSE (UA) NEGATIVE (NEGATIVE); URINE KETONE NEGATIVE (NEGATIVE); URINE LEUK ESTERASE NEGATIVE (NEGATIVE); URINE NITRITE NEGATIVE (NEGATIVE); URINE PROTEIN NEGATIVE (NEGATIVE); URINE UROBILINOGEN NEGATIVE mg/dL (0.2-1.0)
[2016-12-19] MEDS: chlordiazePOXIDE 5 MG CAPSULE PO SCH ×2 (17:33→22:17)
[2016-12-19] MEDS: THIAMINE HCL 100 MG TABLET (FP) PO SCH (22:16)
[2016-12-19] MEDS: traZODone HCL 50 MG TABLET (FP) PO SCH (22:16)
[2016-12-20] MEDS: chlordiazePOXIDE 5 MG CAPSULE PO SCH ×2 (06:35→10:50)
[2016-12-20] MEDS: LEVOTHYROXINE NA 100 MCG TABLET (FP) PO SCH (06:36)
[2016-12-20] MEDS: hydrOXYzine PAMOATE 50 MG CAPSULE (FP) PO PRN (10:50)
[2016-12-20] MEDS: PRENATAL VITAMINS W/ FOLIC ACID TABLET (FP) PO SCH (10:50)
[2016-12-20] MEDS: cloNIDine HCL 0.1 MG TABLET PO SCH ×2 (10:50→22:15)
[2016-12-20] MEDS: METHADONE HCL 5 MG TABLET (FOR DETOX USE ONLY) PO SCH (10:50)
[2016-12-20] MEDS: CYCLOBENZAPRINE HCL 10 MG TABLET (FP) PO PRN ×2 (10:50→22:15)
[2016-12-20] MEDS: NICOTINE 21 MG/24 HOURS TOPICAL PATCH TD SCH (10:54)
--- NOTE | 2016-12-20 12:41 | PN ---
S Progress Note (SOAP) Subjective: ALERT,IRRITABLE,ANXIOUS,INTERRUPTED SLEEP,PAIN IN THE BODY AND BACK Objective: 12/20/16 12:38 Vital Signs Temperature 98.1 F 12/20/16 10:32 Pulse Rate 71 12/20/16 10:32 Respiratory Rate 18 12/20/16 10:32 Blood Pressure 138/63 12/20/16 10:32 O2 Sat by Pulse Oximetry (%) Laboratory Last Values WBC 8.3 K/mm3 (4.0-10.0) 12/18/16 07:00 RBC 3.77 M/mm3 (4.00-5.60) L 12/18/16 07:00 Hgb 11.7 GM/dL (11.7-16.9) 12/18/16 07:00 Hct 34.7 % (35.4-49) L 12/18/16 07:00 MCV 91.9 fl (80-96) 12/18/16 07:00 MCH 30.9 pg (25.7-33.7) 12/18/16 07:00 MCHC 33.6 g/dl (32.0-35.9) 12/18/16 07:00 RDW 13.5 % (11.9-15.9) 12/18/16 07:00 Plt Count 211 K/MM3 (134-434) 12/18/16 07:00 MPV 9.2 fl (7.5-11.1) 12/18/16 07:00 Sodium 139 mmol/L (136-145) 12/18/16 07:00 Potassium 3.7 mmol/L (3.5-5.1) 12/18/16 07:00 Chloride 101 mmol/L (98-107) 12/18/16 07:00 Carbon Dioxide 31 mmol/L (21-32) 12/18/16 07:00 Anion Gap 7 (8-16) L 12/18/16 07:00 BUN 10 mg/dL (7-18) 12/18/16 07:00 Creatinine 1.1 mg/dL (0.7-1.3) 12/18/16 07:00 Creat Clearance w eGFR > 60 (>60) 12/18/16 07:00 POC Glucometer 172 UNITS (()) 12/20/16 06:35 Random Glucose 164 mg/dL (74-106) H 12/18/16 07:00 Fasting Glucose 143 mg/dL (70-105) H 12/20/16 08:00 Calcium 9.1 mg/dL (8.5-10.1) 12/18/16 07:00 Total Bilirubin 0.7 mg/dL (0.2-1.0) D 12/18/16 07:00 AST 9 U/L (15-37) L D 12/18/16 07:00 ALT 18 U/L (12-78) D 12/18/16 07:00 Alkaline Phosphatase 99 U/L (45-117) D 12/18/16 07:00 Total Protein 6.8 g/dl (6.4-8.2) 12/18/16 07:00 Albumin 3.3 g/dl (3.4-5.0) L 12/18/16 07:00 Urine Color Straw 12/19/16 11:40 Urine Appearance Clear 12/19/16 11:40 Urine pH 7.0 (5.0-8.0) D 12/19/16 11:40 Ur Specific [place] 1.015 (1.005-1.025) 12/19/16 11:40 Urine Protein Negative (NEGATIVE) 12/19/16 11:40 Urine Glucose (UA) Negative (NEGATIVE) 12/19/16 11:40 Urine Ketones Negative (NEGATIVE) 12/19/16 11:40 Urine Blood Negative (NEGATIVE) 12/19/16 11:40 Urine Nitrite Negative (NEGATIVE) 12/19/16 11:40 Urine Bilirubin Negative (NEGATIVE) 12/19/16 11:40 Urine Urobilinogen Negative mg/dL (0.2-1.0) 12/19/16 11:40 Ur Leukocyte Esterase Negative (NEGATIVE) 12/19/16 11:40 RPR Titer Nonreactive (NONREACTIVE) 12/18/16 07:00 Assessment: 12/20/16 12:39 WITHDRAWAL SYMPTOM Plan: CONTINUE DETOX,BGM MONITORING,FASTING GLUCOSE IN AM
[2016-12-20] MEDS: chlordiazePOXIDE HCL 10 MG CAPSULE PO SCH ×2 (17:15→22:15)
[2016-12-20] MEDS: traZODone HCL 50 MG TABLET (FP) PO SCH (22:15)
[2016-12-20] MEDS: THIAMINE HCL 100 MG TABLET (FP) PO SCH (22:15)
[2016-12-21] MEDS: chlordiazePOXIDE HCL 10 MG CAPSULE PO SCH ×2 (06:27→10:08)
[2016-12-21] MEDS: LEVOTHYROXINE NA 100 MCG TABLET (FP) PO SCH (06:27)
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
[2016-12-21] MEDS ORDERED: METHADONE HCL 10 MG TABLET (FOR DETOX USE ONLY) PO SCH (10:00)
[2016-12-21] MEDS: cloNIDine HCL 0.1 MG TABLET PO SCH ×2 (10:08→22:12)
[2016-12-21] MEDS: PRENATAL VITAMINS W/ FOLIC ACID TABLET (FP) PO SCH (10:08)
[2016-12-21] MEDS: NICOTINE 21 MG/24 HOURS TOPICAL PATCH TD SCH (10:09)
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
[2016-12-21] MEDS: THIAMINE HCL 100 MG TABLET (FP) PO SCH (22:12)
[2016-12-21] MEDS: diphenhydrAMINE HCL 50 MG CAPSULE PO PRN (22:12)
[2016-12-21] MEDS: traZODone HCL 50 MG TABLET (FP) PO SCH (22:12)
[2016-12-22] MEDS ORDERED: METHADONE HCL 5 MG TABLET (FOR DETOX USE ONLY) PO SCH (06:00)
[2016-12-22] MEDS: LEVOTHYROXINE NA 100 MCG TABLET (FP) PO SCH (07:50)
[2016-12-22 09:12] VITALS: BP 134/95; PULSE 75; TEMP 97.5
[2016-12-22] MEDS: cloNIDine HCL 0.1 MG TABLET PO SCH (10:08)
[2016-12-22] MEDS: PRENATAL VITAMINS W/ FOLIC ACID TABLET (FP) PO SCH (10:08)
[2016-12-22] MEDS: NICOTINE 21 MG/24 HOURS TOPICAL PATCH TD SCH (10:09)
--- NOTE | 2016-12-22 13:16 | DS ---
[facility] Detox Discharge Summary Admission Date: 12/17/16 Discharge Date: 12/22/16 - History Present History: Alcohol Dependence, Cocaine Dependence, Opioid Dependence Pertinent Past History: DMT2 (newly dx) Hypothyroidism PPD Positive - Physical Exam Results Vital Signs: Vital Signs Temperature 97.5 F L 12/22/16 09:11 Pulse Rate 75 12/22/16 09:11 Respiratory Rate 18 12/22/16 09:11 Blood Pressure 134/95 12/22/16 09:11 O2 Sat by Pulse Oximetry (%) Pertinent Admission Physical Exam Findings: Withdrawal symptoms Laboratory Tests 12/18/16 12/18/16 12/18/16 07:00 07:00 07:00 WBC 8.3 RBC 3.77 L Hgb 11.7 Hct 34.7 L MCV 91.9 MCH 30.9 MCHC 33.6 RDW 13.5 Plt Count 211 MPV 9.2 Sodium 139 Potassium 3.7 Chloride 101 Carbon Dioxide 31 Anion Gap 7 L BUN 10 Creatinine 1.1 Creat Clearance w eGFR > 60 POC Glucometer Random Glucose 164 H Fasting Glucose Calcium 9.1 Total Bilirubin 0.7 D AST 9 L D ALT 18 D Alkaline Phosphatase 99 D Total Protein 6.8 Albumin 3.3 L Urine Color Urine Appearance Urine pH Ur Specific [place] Urine Protein Urine Glucose (UA) Urine Ketones Urine Blood Urine Nitrite Urine Bilirubin Urine Urobilinogen Ur Leukocyte Esterase RPR Titer Nonreactive 12/19/16 12/19/16 12/20/16 11:40 16:36 06:35 WBC RBC Hgb Hct MCV MCH MCHC RDW Plt Count MPV Sodium Potassium Chloride Carbon Dioxide Anion Gap BUN Creatinine Creat Clearance w eGFR POC Glucometer 147 172 Random Glucose Fasting Glucose Calcium Total Bilirubin AST ALT Alkaline Phosphatase Total Protein Albumin Urine Color Straw Urine Appearance Clear Urine pH 7.0 D Ur Specific [place] 1.015 Urine Protein Negative Urine Glucose (UA) Negative Urine Ketones Negative Urine Blood Negative Urine Nitrite Negative Urine Bilirubin Negative Urine Urobilinogen Negative Ur Leukocyte Esterase Negative RPR Titer 12/20/16 12/20/16 12/21/16 08:00 16:26 06:18 WBC RBC Hgb Hct MCV MCH MCHC RDW Plt Count MPV Sodium Potassium Chloride Carbon Dioxide Anion Gap BUN Creatinine Creat Clearance w eGFR POC Glucometer 179 153 Random Glucose Fasting Glucose 143 H Calcium Total Bilirubin AST ALT Alkaline Phosphatase Total Protein Albumin Urine Color Urine Appearance Urine pH Ur Specific [place] Urine Protein Urine Glucose (UA) Urine Ketones Urine Blood Urine Nitrite Urine Bilirubin Urine Urobilinogen Ur Leukocyte Esterase RPR Titer 12/21/16 12/21/16 12/22/16 07:50 16:34 06:14 WBC RBC Hgb Hct MCV MCH MCHC RDW Plt Count MPV Sodium Potassium Chloride Carbon Dioxide Anion Gap BUN Creatinine Creat Clearance w eGFR POC Glucometer 191 186 Random Glucose Fasting Glucose 166 H Calcium Total Bilirubin AST ALT Alkaline Phosphatase Total Protein Albumin Urine Color Urine Appearance Urine pH Ur Specific [place] Urine Protein Urine Glucose (UA) Urine Ketones Urine Blood Urine Nitrite Urine Bilirubin Urine Urobilinogen Ur Leukocyte Esterase RPR Titer Labs noted: hyperglycemia due to DMT2, uncontrolled; will start metformin 500mg PO bid (patient denies h/o DM) - Treatment Hospital Course: Detox Protocol Followed, Detoxed Safely, Responded well, Discharged Condition Good, Rehab Referral Accepted - Medication Discharge Medications: Ambulatory Orders Levothyroxine Sodium [Levo-T] 300 mcg PO DAILY 10/11/16 Trazodone HCl [Desyrel -] 50 mg PO HS #30 tablet 12/18/16 - Diagnosis (1) Alcohol dependence with uncomplicated withdrawal Status: Acute (2) Cocaine dependence, uncomplicated Status: Chronic (3) Opioid dependence with withdrawal Status: Acute (4) Hypothyroid Status: Chronic Qualifiers: Hypothyroidism type: acquired Qualified Code(s): E03.9 - Hypothyroidism, unspecified (5) Nicotine dependence Status: Chronic Qualifiers: Nicotine product type: cigarettes Substance use status: uncomplicated Qualified Code(s): F17.210 - Nicotine dependence, cigarettes, uncomplicated (6) PPD positive Status: Chronic (7) Type 2 diabetes mellitus with hyperglycemia Status: Acute - AMA Did Patient Leave Against Medical Advice: No
[2016-12-22] MEDS ORDERED: INSULIN SLIDING SCALE (NOVOLOG) 1 VIAL SQ SCH (16:30)
[2016-12-22] MEDS ORDERED: metFORMIN HCL 500 MG TABLET (FP) PO SCH (16:30)
== END 2016-12-22 11:40 | disposition other institution (70) | DRG 773 ==
LOC: YASAS 11:34 → Y6N 15:47 → Y3N 12-21 09:17
PROVIDERS: ADMIT Internal Medicine; ATTEND Internal Medicine
PROC: HZ2ZZZZ Detoxification Services for Substance Abuse Treatment (ICD-10-PCS; principal; 2016-12-17)
DX: F11.23 Opioid dependence with withdrawal (principal); F10.230 Alcohol dependence with withdrawal, uncomplicated; F14.20 Cocaine dependence, uncomplicated; F17.210 Nicotine dependence, cigarettes, uncomplicated; F19.24 Other psychoactive substance dependence with psychoactive substance-induced mood disorder; E11.65 Type 2 diabetes mellitus with hyperglycemia; E03.9 Hypothyroidism, unspecified; R00.1 Bradycardia, unspecified; G47.30 Sleep apnea, unspecified; R76.11 Nonspecific reaction to tuberculin skin test without active tuberculosis; Z96.643 Presence of artificial hip joint, bilateral; Z79.84 Long term (current) use of oral hypoglycemic drugs
CPT/HCPCS: 36415; 80053; 81003; 82947; 85027; 86593; 93005; 93010

== ENCOUNTER 2016-12-22 11:49 | Inpatient (IN) | payer BC ==
[2016-12-22] MEDS ORDERED: P-EPHED 60MG/TRIPROLIDI 2.5MG TABLET PO PRN (12:39)
[2016-12-22] MEDS ORDERED: LOPERAMIDE HCL 2 MG CAPSULE PO PRN (12:39)
[2016-12-22] MEDS ORDERED: MENTHOL/PHENOL 1 EACH UD MM PRN (12:39)
[2016-12-22] MEDS ORDERED: ACETAMINOPHEN 325 MG TABLET (FP) PO PRN (12:39)
[2016-12-22] MEDS ORDERED: MAG HYDROX/AL HYDROX/SIMETH 30 ML UNIT-DOSE CUP PO PRN (12:39)
[2016-12-22] MEDS ORDERED: MAGNESIUM CITRATE 300 ML BOTTLE PO PRN (12:39)
[2016-12-22] MEDS ORDERED: IBUPROFEN 400 MG TABLET (FP) PO PRN (12:39)
[2016-12-22] MEDS ORDERED: guaiFENesin/D-METHORPHAN HB 10 ML UNIT-DOSE CUPS PO PRN (12:39)
[2016-12-22] MEDS ORDERED: MAGNESIUM HYDROX 2400MG/30ML ORAL SUSPENSION 30 ML CUP PO PRN (12:39)
--- NOTE | 2016-12-22 18:55 | HP ---
[facility] Rehab Assess/Revision - Admission History Date of Admission to Rehab: 12/22/16 - Vital signs Vital Signs: Vital Signs Period Temp Pulse Resp BP Sys/Fisher Pulse Ox Last 24 Hr 98 F-98.0 F 78-78 20-20 136-136/88-88 - Findings Detox History & Physical reviewed: Yes Concur with findings: Yes Comments/Additional Findings: for rehab as protocol
[2016-12-22] MEDS: THIAMINE HCL 100 MG TABLET (FP) PO SCH (21:18)
[2016-12-22] MEDS: diphenhydrAMINE HCL 50 MG CAPSULE PO PRN (21:19)
[2016-12-22] MEDS ORDERED: traZODone HCL 50 MG TABLET (FP) PO SCH (22:00)
[2016-12-23] MEDS: LEVOTHYROXINE NA 150 MCG TABLET PO SCH (06:42)
[2016-12-23] MEDS: PRENATAL VITAMINS W/ FOLIC ACID TABLET (FP) PO SCH (10:13)
[2016-12-23] MEDS: NICOTINE 21 MG/24 HOURS TOPICAL PATCH TD SCH (10:13)
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
[2016-12-23] MEDS: hydrOXYzine PAMOATE 50 MG CAPSULE (FP) PO PRN (18:03)
[2016-12-23] MEDS: THIAMINE HCL 100 MG TABLET (FP) PO SCH (21:21)
[2016-12-23] MEDS: traZODone HCL 100 MG TABLET (FP) PO SCH (21:21)
[2016-12-23] MEDS: diphenhydrAMINE HCL 50 MG CAPSULE PO PRN (21:22)
[2016-12-24] MEDS: hydrOXYzine PAMOATE 50 MG CAPSULE (FP) PO PRN (02:27)
[2016-12-24] MEDS: LEVOTHYROXINE NA 150 MCG TABLET PO SCH (06:20)
[2016-12-24] MEDS: PRENATAL VITAMINS W/ FOLIC ACID TABLET (FP) PO SCH (10:06)
[2016-12-24] MEDS: NICOTINE 21 MG/24 HOURS TOPICAL PATCH TD SCH (10:07)
[2016-12-24] MEDS: traZODone HCL 100 MG TABLET (FP) PO SCH (21:23)
[2016-12-24] MEDS: THIAMINE HCL 100 MG TABLET (FP) PO SCH (21:23)
[2016-12-24] MEDS: diphenhydrAMINE HCL 50 MG CAPSULE PO PRN (21:23)
[2016-12-25] MEDS: LEVOTHYROXINE NA 100 MCG TABLET (FP) PO SCH (06:25)
[2016-12-25] MEDS: PRENATAL VITAMINS W/ FOLIC ACID TABLET (FP) PO SCH (09:45)
[2016-12-25] MEDS: NICOTINE 21 MG/24 HOURS TOPICAL PATCH TD SCH (09:45)
[2016-12-25] MEDS: diphenhydrAMINE HCL 50 MG CAPSULE PO PRN (21:20)
[2016-12-25] MEDS: THIAMINE HCL 100 MG TABLET (FP) PO SCH (21:20)
[2016-12-25] MEDS: traZODone HCL 100 MG TABLET (FP) PO SCH (21:20)
[2016-12-26] MEDS: LEVOTHYROXINE NA 100 MCG TABLET (FP) PO SCH (06:31)
[2016-12-26 07:01] VITALS: BP 142/99; PULSE 84; TEMP 98.1
[2016-12-26] MEDS: PRENATAL VITAMINS W/ FOLIC ACID TABLET (FP) PO SCH (09:53)
[2016-12-26] MEDS: NICOTINE 21 MG/24 HOURS TOPICAL PATCH TD SCH (09:53)
--- NOTE | 2016-12-26 11:43 | PN ---
Psychiatric Progress Note Vital Signs: Vital Signs Period Temp Pulse Resp BP Sys/Fisher Pulse Ox Last 24 Hr 98.1 F 84 16-18 142/99 Date of Session: 12/26/16 Chief Complaint:: AMA HPI: Patient is a 51 year old with history of cocaine, opioid, nicotine dependence and PTSD. ROS: H/o hypothyroidism, right hip replacement in 01/2016, left hip replacement in 10/2015, torn cartilage left knee in 10/2015, right shoulder rotator cuff in 2003. Current Medications: Active Medications Generic Name Dose Route Start Last Admin Trade Name Freq PRN Reason Stop Dose Admin Acetaminophen 650 mg 12/22/16 12:39 Tylenol - PO Q4H PRN FEVER OR PAIN Al Hydroxide/Mg Hydroxide 30 ml 12/22/16 12:39 Mylanta Oral Suspension - PO Q6H PRN DYSPEPSIA Diphenhydramine HCl 50 mg 12/22/16 12:39 12/25/16 21:20 Benadryl - PO 50 mg HSMR1 PRN Administration FOR ITCHING Eucalyptus/Menthol/Phenol/Sorbitol 1 each 12/22/16 12:39 Cepastat Lozenge - MM Q4H PRN SORE THROAT Guaifenesin 10 ml 12/22/16 12:39 Robitussin Dm - PO Q6H PRN COUGH Hydroxyzine Pamoate 50 mg 12/22/16 12:39 12/24/16 02:27 Vistaril - PO 50 mg Q4H PRN Administration AGITATION Ibuprofen 400 mg 12/22/16 12:39 12/26/16 00:58 Motrin - PO 400 mg Q6H PRN Administration PAIN Levothyroxine Sodium 300 mcg 12/24/16 11:39 12/26/16 06:31 Synthroid - PO 300 mcg DAILY@0700 VASILE Administration Loperamide HCl 4 mg 12/22/16 12:39 Imodium - PO Q6H PRN DIARRHEA Magnesium Hydroxide 30 ml 12/22/16 12:39 Milk Of Magnesia - PO DAILY PRN CONSTIPATION Nicotine 21 mg 12/23/16 10:00 12/26/16 09:53 Nicoderm Patch - TD Not Given DAILY VASILE Multivit/Folic Acid/Iron 1 tab 12/23/16 10:00 12/26/16 09:53 Vitamins (Sjr) - PO 1 tab DAILY VASILE Administration Pseudoephedrine/Triprolidine 1 combo 12/22/16 12:39 Actifed - PO TID PRN NASAL CONGESTION Thiamine HCl 100 mg 12/22/16 22:00 12/25/16 21:20 Vitamin B1 - PO 100 mg HS VASILE Administration Trazodone HCl 100 mg 12/23/16 22:00 12/25/16 21:20 Desyrel - PO 100 mg HS VASILE Administration Current Side Effect: No Lab tests ordered: No Lab tests reviewed: Yes Provider note:: Patient decided to leave [facility] today, reports he is planning to go to [place] and does not want to stay. He reported he does not need scripts for Trazodone, he sleeps well hwne he is home, he was encouraged to stay and contineu his treatment but adanmant to leave [place], he is stable for [place] discharge. Total face to face time:: 15 Mental Status Exam - Mental Status Exam Alert and Oriented to: Time, Place, Person Cognitive Function: Good Mood: Hopeful Affect: Appropriate, Mood Congruent Patient Behavior: Appropriate, Cooperative Speech Pattern: Clear, Appropriate Voice Loudness: Normal Thought Process: Intact, Goal Oriented Thought Disorder: Not Present Hallucinations: Denies Suicidal Ideation: Denies Homicidal Ideation: Denies Insight/Judgement: Fair Sleep: Fair Appetite: Fair Muscle strength/Tone: Normal Gait/Station: Normal Psychiatric Treatment Plan - Problem List (1) Nicotine dependence Current Visit: No Qualifiers: Nicotine product type: cigarettes Substance use status: uncomplicated Qualified Code(s): F17.210 - Nicotine dependence, cigarettes, uncomplicated (2) Opioid dependence Current Visit: Yes (3) Cocaine dependence Current Visit: Yes (4) PTSD (post-traumatic stress disorder) Current Visit: Yes
== END 2016-12-26 11:30 | disposition left against medical advice (07) | DRG 770 ==
LOC: YASAS 11:49 → Y5N 11:52
PROVIDERS: ADMIT Psychiatry & Neurology Psychiatry; ATTEND Psychiatry & Neurology Psychiatry
PROC: HZ42ZZZ Group Counseling for Substance Abuse Treatment, Cognitive-Behavioral (ICD-10-PCS; principal; 2016-12-22)
DX: F11.20 Opioid dependence, uncomplicated (principal); F14.20 Cocaine dependence, uncomplicated; F17.210 Nicotine dependence, cigarettes, uncomplicated; F43.10 Post-traumatic stress disorder, unspecified; E03.9 Hypothyroidism, unspecified; Z96.643 Presence of artificial hip joint, bilateral

== ENCOUNTER 2018-12-09 12:39 | Inpatient (IN) | payer BC ==
[2018-12-09 14:31] VITALS: BMI 34.7
--- NOTE | 2018-12-09 14:58 | HP ---
CIWA Score Nausea/Vomitin-No Nausea/No Vomiting Muscle Tremors: 1-None Visible, but [place] Anxiety: 4-Mod. Anxious/Guarded Agitation: 4-Moderately Restless Paroxysmal Sweats: 3 (Increased facial mositue) Orientation: 0-Oriented Tacttile Disturbances: 0-None Auditory Disturbances: 0-None Visual Disturbances: 0-None Headache: 0-None Present CIWA-Ar Total Score: 12 - Admission Criteria [facility]ASAS Guidelines: Admission for Medically Managed Detox: Requires at least one of the followin. CIWA greater than 12 2. Seizures within the past 24 hours 3. Delirium tremens within the past 24 hours 4. Hallucinations within the past 24 hours 5. Acute intervention needed for co occurring medical disorder 6. Acute intervention needed for co occurring psychiatric disorder 7. Severe withdrawal that cannot be handled at a lower level of care (continued vomiting, continued diarrhea, abnormal vital signs) requiring intravenous medication and/or fluids 8. Patient presents the following: CIWA greater than 12 Admission Criteria Met: Admission criteria met Admission ROS [facility] Chief Complaint: States having withdrawal symptoms. Allergies/Adverse Reactions: Allergies Allergy/AdvReac Type Severity Reaction Status Date / Time No Known Allergies Allergy Verified 12/09/18 14:17 History of Present Illness: 53 yo presents w/ alcohol withdrawal seeking detox.. Alcohol use began at age 18. Significant increase at age 28. States currently drinks about 1 pint and 6 pk beer x 10 yrs. Last drink just before arrival. Heroin use began in 28's. States currently on MSBI OTP x 3 months. Current dose is Methadone 60 mg PO Daily. Last medicated /12/09/18. LDM and Dose verified w/ MsKenya Diaz Sa, RN, Clinic 10/02. Cocaine use began at age 19. Currently uses 4x/wk Nicotine use began at age 28. Currently smokes approx 7 cig/day. PMHx: Hypothyroid; Sleep apnea (uses CPAP machine); Arthritis (L) knee; Pradeep Hip R replacement; PPD+ (States Rx'd w/ INH/B6) Patient informed will not be able to receive opioid pain medication and verbalizes an understanding. Willing receive ibuprofen or tylenol. 2016 EKG @ [facility] = Bradycardia. MHHx: PTSD (resolved) Denies thoughts of harming self or others. SHx: Domiciled. Unemployed. Patient Name: Shahriar Tao Date: 1965 Address: [facility] NAHEED RODAS [address] [address] Sex: Male Rx Written Rx Dispensed Drug Quantity Days Supply Prescriber Name 12/07/2018 12/07/2018 endocet 10-325 mg tablet 120 30 Davion Whitman MD 11/06/2018 11/06/2018 endocet 10-325 mg tablet 120 30 Davion Whitman MD 10/08/2018 10/08/2018 oxycodone-acetaminophen 10-325 mg tab 120 30 Davion Whitman MD 09/09/2018 09/09/2018 oxycodone-acetaminophen 10-325 mg tab 120 30 Davion Whitman MD 08/10/2018 08/10/2018 oxycodone-acetaminophen 10-325 mg tab 120 30 Davion Whitman MD 06/30/2018 07/13/2018 oxycodone-acetaminophen 10-325 mg tab 120 30 Davion Whitman MD 06/02/2018 06/03/2018 oxycodone-acetaminophen 10-325 mg tab 120 30 Davion Whitman MD 05/06/2018 05/06/2018 oxycodone-acetaminophen 10-325 mg tab 120 30 Davion Whitman MD 03/31/2018 03/31/2018 oxycodone-acetaminophen 10-325 mg tab 120 30 Davion Whitman MD 03/02/2018 03/02/2018 oxycodone-acetaminophen 10-325 mg tab 120 30 Davion Whitman MD 01/29/2018 01/30/2018 oxycodone-acetaminophen 10-325 mg tab 120 30 Davion Whitman MD 12/31/2017 12/31/2017 oxycodone-acetaminophen 10-325 mg tab 120 30 Davion Whitman MD Patient Name: Shahriar Tao Date: 1965 Address: [address] [place] [id number] Sex: Male Rx Written Rx Dispensed Drug Quantity Days Supply Prescriber Name 07/29/2018 07/29/2018 buprenorphine-naloxone 4-1 mg sl film 14 7 Shameka Butt NP 07/23/2018 07/23/2018 buprenorphine-naloxone 4-1 mg sl film 12 7 Mikal Lyman Search Terms: Shahriar Tao, 1965 Search Date: 12/09/2018 03:04:30 PM States Searched: [place], [place], [place], [place], [place], [place], [place] The Drug Utilization Report below displays the controlled substance prescriptions, if any, that were dispensed in the indicated state(s). The information displayed on this report is compiled from requests submitted to other states' PMPs, and accurately reflects the information as returned by them. Blank nice indicate data not provided by other state. This report was requested by: Saadia Parr | Reference #: [id number] Exam Limitations: No Limitations - Ebola screening Have you traveled outside of the country in the last 21 days: No Have you had contact with anyone from an Ebola affected area: No Have you been sick,other than usual withdrawal symptoms: No (Denies recent exposure to measles) Do you have a fever: No - Review of Systems Constitutional: No Symptoms Reported EENT: reports: Blurred Vision, Dental Problems (Missing teeth. Chews and swallows ok.) Respiratory: reports: No Symptoms reported Cardiac: reports: No Symptoms Reported GI: reports: No Symptoms Reported : reports: No Symptoms Reported Musculoskeletal: reports: Back Pain (Chronic, intermittent LBP. No pain at this time.), Joint Pain (Chronic (L) knee achy/dull pain. Pain is "7". Pain increases w/ sitting, walking, and standing too long. Improves w/ elevation/ medication/tiger balm.) Integumentary: reports: Pruritus (Itchy skin, mostly (R) arm) Neuro: reports: Headache ((R) temporal) Endocrine: reports: Increased Thirst Hematology: reports: No Symptoms Reported Psychiatric: reports: Orientated x3, Agitated, Anxious Patient History - Patient Medical History Hx Anemia: No Hx Asthma: No Hx Chronic Obstructive Pulmonary Disease (COPD): No Hx Cancer: No Hx Cardiac Disorders: No Hx Congestive Heart Failure: No Hx Hypertension: No Hx Hypercholesterolemia: No Hx Pacemaker: No HX Cerebrovascular Accident: No Hx Seizures: No Hx Dementia: No Hx Diabetes: No Hx Gastrointestinal Disorders: No Hx Liver Disease: No Hx Genitourinary Disorders: No Hx Sexually Transmitted Disorders: No Hx Renal Disease (ESRD): No Hx Thyroid Disease: No Hx Human Immunodeficiency Virus (HIV): No (negative ) Hx Hepatitis C: No (negative) Hx Depression: No Hx Suicide Attempt: No (denies) Hx Bipolar Disorder: No Hx Schizophrenia: No - Patient Surgical History Past Surgical History: Yes Hx Neurologic Surgery: No Hx Cataract Extraction: No Hx Cardiac Surgery: No Hx Lung Surgery: No Hx Breast Surgery: No Hx Breast Biopsy: No Hx Abdominal Surgery: No Hx Appendectomy: No Hx Cholecystectomy: No Hx Genitourinary Surgery: No Hx Section: No Hx Orthopedic Surgery: Yes (right hip replacement in 01/2016/left hip replacement in 10/2015) Other Surgical History: torn cartilage, left knee in 10/2015, right shoulder rotator cuff in 2003 Anesthesia Reaction: No - PPD History Previous Implant?: Yes Documented Results: Positive w/o proof Implanted On Prior [facility] Admission?: No Results: cx-ray (-)10/12 PPD to be Administered?: No - Smoking Cessation Smoking history: Current every day smoker Have you smoked in the past 12 months: Yes Aproximately how many cigarettes per day: 7 Hx Chewing Tobacco Use: No Initiated information on smoking cessation: Yes 'Breaking Loose' booklet given: 12/09/18 - Substance & Tx. History Hx Alcohol Use: Yes Hx Substance Use: Yes Substance Use Type: Alcohol, Cocaine, Heroin Hx Substance Use Treatment: Yes (detox, rehab, Currently on MSBI MMTP) - Substances abused Cocaine Substance route: Inhalation Frequency: 3-6 times per week Amount used: 1 gram every other day Age of first use: 19 Date of last use: 12/08/18 Alcohol Substance route: Oral Frequency: Daily Amount used: 1/2 pint of vodka, 1 6 pck of beer Age of first use: 28 Date of last use: 12/09/18 Family Disease History - Family Disease History Family Disease History: Heart Disease: Mother Admission Physical Exam [facility] - Vital Signs Vital Signs: Vital Signs - 24 hr 12/09/18 14:13 Temperature 97.5 F L Pulse Rate 57 L Respiratory 20 Rate Blood Pressure 164/90 - Physical General Appearance: Yes: Nourished, Obese, Tremorous (Mild tremors felt), Sweating (Increased facial moisture), Anxious HEENTM: Yes: EOMI, Hearing grossly Normal, Normocephalic, Normal Voice, MICHAEL ( Pupils = 2 mm), Pharynx Normal Respiratory: Yes: Lungs Clear, Normal Breath Sounds, No Respiratory Distress Neck: Yes: No masses,lesions,Nodules, Supple Breast: Yes: Breast Exam Deferred Cardiology: Yes: Regular Rhythm, S1, S2, Bradycardia (HR: 58) Abdominal: Yes: Soft, Increased Bowel Sounds, Protuberent (Increased abdominal adiposity) Genitourinary: Yes: Within Normal Limits Back: Yes: Normal Inspection Musculoskeletal: Yes: full range of Motion, Gait Steady Extremities: Yes: Normal Capillary Refill, Tremors (felt,, not seen) Neurological: Yes: career services coordinator II-XII NML intact, Fully Oriented, Alert, Motor Strength 5/5 Integumentary: Yes: Normal Color, Warm, Diaphoresis (Increased facial moisture) Lymphatic: Yes: Within Normal Limits - Diagnostic (1) History of positive PPD Current Visit: Yes Status: Chronic (2) Obesity (BMI 30.0-34.9) Current Visit: Yes Status: Chronic (3) History of bilateral hip replacements Current Visit: Yes Status: Chronic (4) Left knee pain Current Visit: Yes Status: Chronic Qualifiers: Chronicity: chronic Qualified Code(s): M25.562 - Pain in left knee; G89.29 - Other chronic pain (5) Alcohol dependence with uncomplicated withdrawal Current Visit: Yes Status: Acute (6) Cocaine dependence, uncomplicated Current Visit: Yes Status: Chronic (7) H/O sleep apnea Current Visit: Yes Status: Chronic Comment: pt uses a sleep apnea machine (8) Hypothyroid Current Visit: Yes Status: Chronic Qualifiers: Hypothyroidism type: acquired Qualified Code(s): E03.9 - Hypothyroidism, unspecified (9) Nicotine dependence Current Visit: Yes Status: Chronic Qualifiers: Nicotine product type: cigarettes Substance use status: uncomplicated Qualified Code(s): F17.210 - Nicotine dependence, cigarettes, uncomplicated (10) Methadone maintenance therapy patient Current Visit: Yes Status: Chronic Comment: Dose verified. Cleared for Admission [facility] - Detox or Rehab [facility] Level of Care: Medically Managed Detox Regimen/Protocol: Librium Claeared for Rehab Admission: No Inpatient Rehab Admission - Rehab Decision to Admit Inpatient rehab admission?: No
[2018-12-09] MEDS ORDERED: NICOTINE POLACRILEX 2 MG GUM BUC PRN (15:42)
[2018-12-09] MEDS ORDERED: BISMUTH SUBSALICYLATE 524 MG/30 ML UD PO PRN (15:42)
[2018-12-09] MEDS ORDERED: MAGNESIUM HYDROX 2400MG/30ML ORAL SUSPENSION 30 ML CUP PO PRN (15:42)
[2018-12-09] MEDS ORDERED: MENTHOL/PHENOL 1 EACH UD MM PRN (15:42)
[2018-12-09] MEDS ORDERED: MAG HYDROX/AL HYDROX/SIMETH 30 ML UNIT-DOSE CUP PO PRN (15:42)
[2018-12-09] MEDS ORDERED: ACETAMINOPHEN 325 MG TABLET (FP) PO PRN ×2 (15:42)
[2018-12-09] MEDS ORDERED: METHOCARBAMOL 500 MG TABLET PO PRN (15:42)
[2018-12-09] MEDS ORDERED: chlordiazePOXIDE HCL 10 MG CAPSULE PO PRN (15:42)
[2018-12-09] MEDS ORDERED: MAGNESIUM CITRATE 300 ML BOTTLE PO PRN (15:42)
[2018-12-09] MEDS ORDERED: chlordiazePOXIDE HCL 25 MG CAPSULE PO ONE (17:00)
[2018-12-09] MEDS: PETROLATUM, WHITE 30 GM TUBE TP SCH (18:47)
[2018-12-09] MEDS: chlordiazePOXIDE HCL 25 MG CAPSULE PO SCH (22:31)
[2018-12-09] MEDS: THIAMINE HCL 100 MG TABLET (FP) PO SCH (22:31)
[2018-12-09] MEDS: MELATONIN 5 MG TABLETS PO PRN (22:31)
[2018-12-10] MEDS: IBUPROFEN 600 MG TABLET (FP) PO PRN (02:07)
[2018-12-10] MEDS ORDERED: METHADONE HCL 40 MG DISPERSABLE TABLET ONE (04:49)
[2018-12-10] MEDS ORDERED: METHADONE HCL 10 MG TABLET ONE (04:49)
[2018-12-10] MEDS: METHADONE 40 MG, METHADONE 20 MG PO SCH (05:14)
[2018-12-10] MEDS: chlordiazePOXIDE HCL 25 MG CAPSULE PO SCH ×3 (05:15→22:28)
[2018-12-10] MEDS ORDERED: METHADONE HCL 40 MG DISPERSABLE TABLET PO SCH (06:00)
[2018-12-10] MEDS: LEVOTHYROXINE NA 100 MCG TABLET (FP) PO SCH (06:17)
[2018-12-10 10:07] LABS: HEMATOCRIT 37.9 % (35.4-49); HEMOGLOBIN 12.8 GM/dL (11.7-16.9); MCHC 33.7 g/dl (32.0-35.9); MEAN PLT VOLUME 9.5 fl (7.5-11.1); PLATELET COUNT 224 K/MM3 (134-434); RBC 4.12 M/mm3 (4.00-5.60); RDW 14.2 % (11.9-15.9); WHITE BLOOD COUNT 6.6 K/mm3 (4.0-10.0)
[2018-12-10 10:13] LABS: ALBUMIN 3.5 g/dl (3.4-5.0); BILIRUBIN,TOTAL 0.5 mg/dL (0.2-1); BLOOD UREA NITROGEN 7.4 mg/dL (7-18); CALCIUM 9.1 mg/dL (8.5-10.1); CREATININE 0.9 mg/dL (0.55-1.3); POTASSIUM 4.1 mmol/L (3.5-5.1); TOT PROT 7.2 g/dl (6.4-8.2)
[2018-12-10] MEDS: PRENATAL VITAMINS W/ FOLIC ACID TABLET (FP) PO SCH (10:29)
[2018-12-10] MEDS: NICOTINE 7 MG/24 HOURS TOPICAL PATCH TD SCH (10:29)
[2018-12-10] MEDS: PETROLATUM, WHITE 30 GM TUBE TP SCH (10:30)
[2018-12-10] MEDS ORDERED: LIDOCAINE VISCOUS 2% ORAL/TOP 20 ML UNIT-DOSE CUP MM PRN (16:31)
--- NOTE | 2018-12-10 16:36 | PN ---
[facility] CIWA - CIWA Score Nausea/Vomitin-Mild Nausea/No Vomiting Muscle Tremors: 2 Anxiety: 3 Agitation: 3 Paroxysmal Sweats: 2 Orientation: 0-Oriented Tacttile Disturbances: 0-None Auditory Disturbances: 0-None Visual Disturbances: 0-None Headache: 0-None Present CIWA-Ar Total Score: 11 S Progress Note (SOAP) Subjective: apnea machine at bed side encourage the patient to use when sleeping or napping on bed c/o toothache gum pink no swell lidocain mouth solution Objective: 12/10/18 16:35 Vital Signs Temperature 97.9 F 12/10/18 13:45 Pulse Rate 47 L 12/10/18 13:45 Respiratory Rate 19 12/10/18 13:45 Blood Pressure 126/67 12/10/18 13:45 O2 Sat by Pulse Oximetry (%) Laboratory Last Values WBC 6.6 K/mm3 (4.0-10.0) 12/10/18 07:00 RBC 4.12 M/mm3 (4.00-5.60) 12/10/18 07:00 Hgb 12.8 GM/dL (11.7-16.9) 12/10/18 07:00 Hct 37.9 % (35.4-49) 12/10/18 07:00 MCV 92.0 fl (80-96) 12/10/18 07:00 MCH 31.0 pg (25.7-33.7) 12/10/18 07:00 MCHC 33.7 g/dl (32.0-35.9) 12/10/18 07:00 RDW 14.2 % (11.9-15.9) 12/10/18 07:00 Plt Count 224 K/MM3 (134-434) 12/10/18 07:00 MPV 9.5 fl (7.5-11.1) 12/10/18 07:00 Sodium 141 mmol/L (136-145) 12/10/18 07:00 Potassium 4.1 mmol/L (3.5-5.1) 12/10/18 07:00 Chloride 103 mmol/L (98-107) 12/10/18 07:00 Carbon Dioxide 34 mmol/L (21-32) H 12/10/18 07:00 Anion Gap 4 MMOL/L (8-16) L 12/10/18 07:00 BUN 7.4 mg/dL (7-18) 12/10/18 07:00 Creatinine 0.9 mg/dL (0.55-1.3) 12/10/18 07:00 Est GFR (CKD-EPI)AfAm 111.05 12/10/18 07:00 Est GFR (CKD-EPI)NonAf 95.81 12/10/18 07:00 Random Glucose 102 mg/dL (74-106) 12/10/18 07:00 Calcium 9.1 mg/dL (8.5-10.1) 12/10/18 07:00 Total Bilirubin 0.5 mg/dL (0.2-1) 12/10/18 07:00 AST 17 U/L (15-37) 12/10/18 07:00 ALT 19 U/L (13-61) 12/10/18 07:00 Alkaline Phosphatase 118 U/L (45-117) H 12/10/18 07:00 Total Protein 7.2 g/dl (6.4-8.2) 12/10/18 07:00 Albumin 3.5 g/dl (3.4-5.0) 12/10/18 07:00 RPR Titer Nonreactive (NONREACTIVE) 12/10/18 07:00 lab noted Assessment: 12/10/18 16:35 alcohol withdrawal sx alert oriented x 3 tired prefers sleeping on bed today Plan: continue libirum detox regimen
[2018-12-10] MEDS: THIAMINE HCL 100 MG TABLET (FP) PO SCH (22:28)
[2018-12-10] MEDS: MELATONIN 5 MG TABLETS PO PRN (22:29)
[2018-12-11] MEDS ORDERED: METHADONE HCL 10 MG TABLET ONE (04:24)
[2018-12-11] MEDS ORDERED: METHADONE HCL 40 MG DISPERSABLE TABLET ONE (04:24)
[2018-12-11] MEDS: chlordiazePOXIDE 5 MG CAPSULE PO SCH ×3 (05:13→22:14)
[2018-12-11] MEDS: METHADONE 40 MG, METHADONE 20 MG PO SCH (05:13)
[2018-12-11] MEDS: LEVOTHYROXINE NA 100 MCG TABLET (FP) PO SCH (06:29)
[2018-12-11] MEDS: PRENATAL VITAMINS W/ FOLIC ACID TABLET (FP) PO SCH (10:11)
[2018-12-11] MEDS: NICOTINE 7 MG/24 HOURS TOPICAL PATCH TD SCH (10:11)
[2018-12-11] MEDS: PETROLATUM, WHITE 30 GM TUBE TP SCH (10:12)
[2018-12-11 11:30] LABS: URINE APPEARANCE CLEAR; URINE BILIRUBIN NEGATIVE (NEGATIVE); URINE COLOR YELLOW; URINE GLUCOSE (UA) NEGATIVE (NEGATIVE); URINE KETONE NEGATIVE (NEGATIVE); URINE LEUK ESTERASE NEGATIVE (NEGATIVE); URINE NITRITE NEGATIVE (NEGATIVE); URINE PROTEIN NEGATIVE (NEGATIVE)
--- NOTE | 2018-12-11 15:32 | PN ---
[facility] CIWA - CIWA Score Nausea/Vomitin-No Nausea/No Vomiting Muscle Tremors: None Anxiety: 3 Agitation: 2 Paroxysmal Sweats: 3 Orientation: 0-Oriented Tacttile Disturbances: 0-None Auditory Disturbances: 2-Mild Harshness/Frighten Visual Disturbances: 1-Very Mild Sensitivity Headache: 0-None Present CIWA-Ar Total Score: 11 S Progress Note (SOAP) Subjective: Interrupted Sleep, Sweating, Anxious. Objective: PATIENT A & O X 3, OBSERVED AMBULATING ON UNIT UNASSISTED. IN NO ACUTE DISTRESS. 12/11/18 15:33 Vital Signs Temperature 98.2 F 12/11/18 14:28 Pulse Rate 55 L 12/11/18 14:28 Respiratory Rate 18 12/11/18 14:28 Blood Pressure 133/79 12/11/18 14:28 O2 Sat by Pulse Oximetry (%) Laboratory Tests 12/10/18 12/10/18 12/10/18 07:00 07:00 07:00 WBC 6.6 RBC 4.12 Hgb 12.8 Hct 37.9 MCV 92.0 MCH 31.0 MCHC 33.7 RDW 14.2 Plt Count 224 MPV 9.5 Sodium 141 Potassium 4.1 Chloride 103 Carbon Dioxide 34 H Anion Gap 4 L BUN 7.4 Creatinine 0.9 Est GFR (CKD-EPI)AfAm 111.05 Est GFR (CKD-EPI)NonAf 95.81 Random Glucose 102 Calcium 9.1 Total Bilirubin 0.5 AST 17 ALT 19 Alkaline Phosphatase 118 H Total Protein 7.2 Albumin 3.5 Urine Color Urine Appearance Urine pH Ur Specific [place] Urine Protein Urine Glucose (UA) Urine Ketones Urine Blood Urine Nitrite Urine Bilirubin Urine Urobilinogen Ur Leukocyte Esterase RPR Titer Nonreactive 12/10/18 07:30 WBC RBC Hgb Hct MCV MCH MCHC RDW Plt Count MPV Sodium Potassium Chloride Carbon Dioxide Anion Gap BUN Creatinine Est GFR (CKD-EPI)AfAm Est GFR (CKD-EPI)NonAf Random Glucose Calcium Total Bilirubin AST ALT Alkaline Phosphatase Total Protein Albumin Urine Color Yellow Urine Appearance Clear Urine pH 6.0 Ur Specific [place] 1.015 Urine Protein Negative Urine Glucose (UA) Negative Urine Ketones Negative Urine Blood Negative Urine Nitrite Negative Urine Bilirubin Negative Urine Urobilinogen 1.0 Ur Leukocyte Esterase Negative RPR Titer LABS NOTED. Assessment: 08/16/19 15:34 WITHDRAWAL SYMPTOMS. Plan: CONTINUE DETOX.
[2018-12-11] MEDS: THIAMINE HCL 100 MG TABLET (FP) PO SCH (22:14)
[2018-12-12] MEDS ORDERED: chlordiazePOXIDE HCL 10 MG CAPSULE PO PRN
[2018-12-12] MEDS ORDERED: METHADONE HCL 10 MG TABLET ONE (04:27)
[2018-12-12] MEDS ORDERED: METHADONE HCL 40 MG DISPERSABLE TABLET ONE (04:27)
[2018-12-12] MEDS: chlordiazePOXIDE HCL 10 MG CAPSULE PO SCH ×3 (05:57→22:32)
[2018-12-12] MEDS: METHADONE 40 MG, METHADONE 20 MG PO SCH (05:57)
[2018-12-12] MEDS: LEVOTHYROXINE NA 100 MCG TABLET (FP) PO SCH (07:00)
[2018-12-12] MEDS: PRENATAL VITAMINS W/ FOLIC ACID TABLET (FP) PO SCH (10:52)
[2018-12-12] MEDS: PETROLATUM, WHITE 30 GM TUBE TP SCH (10:52)
[2018-12-12] MEDS: NICOTINE 7 MG/24 HOURS TOPICAL PATCH TD SCH (10:54)
[2018-12-12] MEDS: IBUPROFEN 600 MG TABLET (FP) PO PRN (14:21)
--- NOTE | 2018-12-12 14:42 | PN ---
S CIWA - CIWA Score Nausea/Vomitin-No Nausea/No Vomiting Muscle Tremors: None Anxiety: 3 Agitation: 2 Paroxysmal Sweats: 3 Orientation: 0-Oriented Tacttile Disturbances: 2-Mild Itch/Numbness/Burn Auditory Disturbances: 0-None Visual Disturbances: 0-None Headache: 0-None Present CIWA-Ar Total Score: 10 BHS Progress Note (SOAP) Subjective: Interrupted Sleep, Sweating, Anxious. Objective: PATIENT A & O X 3, OBSERVED AMBULATING ON UNIT UNASSISTED. IN NO ACUTE DISTRESS. 12/12/18 14:41 Vital Signs Temperature 97.2 F L 12/12/18 09:47 Pulse Rate 62 12/12/18 09:47 Respiratory Rate 18 12/12/18 09:47 Blood Pressure 146/93 12/12/18 09:47 O2 Sat by Pulse Oximetry (%) Laboratory Tests 12/10/18 12/10/18 12/10/18 07:00 07:00 07:00 WBC 6.6 RBC 4.12 Hgb 12.8 Hct 37.9 MCV 92.0 MCH 31.0 MCHC 33.7 RDW 14.2 Plt Count 224 MPV 9.5 Sodium 141 Potassium 4.1 Chloride 103 Carbon Dioxide 34 H Anion Gap 4 L BUN 7.4 Creatinine 0.9 Est GFR (CKD-EPI)AfAm 111.05 Est GFR (CKD-EPI)NonAf 95.81 Random Glucose 102 Calcium 9.1 Total Bilirubin 0.5 AST 17 ALT 19 Alkaline Phosphatase 118 H Total Protein 7.2 Albumin 3.5 Urine Color Urine Appearance Urine pH Ur Specific [place] Urine Protein Urine Glucose (UA) Urine Ketones Urine Blood Urine Nitrite Urine Bilirubin Urine Urobilinogen Ur Leukocyte Esterase RPR Titer Nonreactive 12/10/18 07:30 WBC RBC Hgb Hct MCV MCH MCHC RDW Plt Count MPV Sodium Potassium Chloride Carbon Dioxide Anion Gap BUN Creatinine Est GFR (CKD-EPI)AfAm Est GFR (CKD-EPI)NonAf Random Glucose Calcium Total Bilirubin AST ALT Alkaline Phosphatase Total Protein Albumin Urine Color Yellow Urine Appearance Clear Urine pH 6.0 Ur Specific [place] 1.015 Urine Protein Negative Urine Glucose (UA) Negative Urine Ketones Negative Urine Blood Negative Urine Nitrite Negative Urine Bilirubin Negative Urine Urobilinogen 1.0 Ur Leukocyte Esterase Negative RPR Titer LABS NOTED. Assessment: 12/12/18 14:41 WITHDRAWAL SYMPTOMS. ELEVATED BLOOD PRESSURE WITHOUT DIAGNOSIS OF HYPERTENSION (PATIENT DENIES KNOWN HISTORY OF HTN).. 12/12/18 14:42 Plan: CONTINUE DETOX. PATIENT SCHEDULED FOR D/C FROM DETOX UNIT TOMORROW. TODAY, PATIENT REPORTED DISCOMFORT IN BILATERAL LOWER LEGS, ANKLES, AND FEET. PATIENT REPORTS THAT DISCOMFORT JUST STARTED IN LAST DAY OR TWO AND HE DENIES HISTORY OF SIMILAR OCCURRENCE IN THE PAST. PATIENT DENIES HISTORY OF IVDU. PATIENT DOES NOTE THAT HE HAS BEEN UP ON HIS FEET OFTEN RECENTLY. MILD SWELLING (NON-PITTING) NOTED IN BILATERAL LOWER LEGS. NO ERYTHEMA, WOUNDS, OR UNUSIUAL DISCHARGE NOTED IN BIALTERAL LOWER LEGS OR FEET. PATIENT HAS FULL ROM OF BILATERAL FEET AND TOES. PEDAL PULSES PALPABLE EQUAL AND BIALTERALLY. PATIENT HAS FULL TACTILE SENSATION IN BILATERAL FEET. PATIENT ADVISED TO FOLLOW-UP WITH [facility] AFTER DISCHARGE FROM DETOX FOR FURTHER MEDICAL EVALUATION OF CONDITION DESCRIBED ABOVE AND FOR ELEVATED BLOOD PRESSURE READINGS NOTED WHILE ADMITTED FOR DETOX. PATIENT ALSO ADVISED TO KEEP FEET ELEVATED IN BED MUCH POSSIBLE FOR TIME BEING. PATIENT VERBALIZED UNDERSTANDING OF ALL RECOMMENDATIONS PRESENTED TO HIM TODAY.
[2018-12-12] MEDS ORDERED: COLLOIDAL OATMEAL 1 BAR EACH TP PRN (19:21)
[2018-12-12] MEDS: THIAMINE HCL 100 MG TABLET (FP) PO SCH (22:32)
[2018-12-13] MEDS: IBUPROFEN 600 MG TABLET (FP) PO PRN (02:19)
[2018-12-13] MEDS ORDERED: METHADONE HCL 10 MG TABLET ONE (04:48)
[2018-12-13] MEDS ORDERED: METHADONE HCL 40 MG DISPERSABLE TABLET ONE (04:49)
[2018-12-13] MEDS ORDERED: chlordiazePOXIDE HCL 10 MG CAPSULE PO ONE (05:00)
[2018-12-13] MEDS: METHADONE 40 MG, METHADONE 20 MG PO SCH (05:33)
[2018-12-13] MEDS: LEVOTHYROXINE NA 100 MCG TABLET (FP) PO SCH (07:16)
[2018-12-13 09:34] VITALS: BP 139/91; PULSE 68; TEMP 98.2
[2018-12-13] MEDS: NICOTINE 7 MG/24 HOURS TOPICAL PATCH TD SCH (10:58)
[2018-12-13] MEDS: PRENATAL VITAMINS W/ FOLIC ACID TABLET (FP) PO SCH (10:58)
[2018-12-13] MEDS: PETROLATUM, WHITE 30 GM TUBE TP SCH (10:58)
--- NOTE | 2018-12-13 11:43 | EKG ---
Test Reason : Blood Pressure : / mmHG Vent. Rate : 055 BPM Atrial Rate : 055 BPM P-R Int : 178 ms QRS Dur : 102 ms QT Int : 456 ms P-R-T Axes : 058 057 075 degrees QTc Int : 436 ms SINUS BRADYCARDIA NONSPECIFIC T WAVE ABNORMALITY ABNORMAL ECG WHEN COMPARED WITH ECG OF 17-DEC-2016 15:58, T WAVE INVERSION NOW EVIDENT IN ANTERIOR LEADS Confirmed by ABBY ROJAS, PEPPER ([id number]) on 12/13/2018 11:43:01 AM Referred By: Confirmed By:PEPPER MORA MD
--- NOTE | 2018-12-13 12:05 | DS ---
[facility] Detox Discharge Summary Admission Date: 12/09/18 Discharge Date: 12/13/18 - History Present History: Alcohol Dependence Additional Comments: 53 years old male admitted on 12/09/18 for acute alcohol withdrawal sx management doing well with librium detox regimen aftercare arms acr admission 12/15/18 patient reported that his legs are swelling and 10/10 pain with light touch, immobile, no flexion nor extension of both knees resting on bed with leg elevation sleep apnea machine at bed side medical history of hypothyroid due to sudden immobility of the legs rule out spinal origin information provided to ER Dr. Valiente proposition: discharged to home aftercare [facility] Pertinent Past History: hypothyroid - Physical Exam Results Vital Signs: Vital Signs Temperature 98.2 F 12/13/18 09:34 Pulse Rate 68 12/13/18 09:34 Respiratory Rate 20 12/13/18 09:34 Blood Pressure 139/91 12/13/18 09:34 O2 Sat by Pulse Oximetry (%) Pertinent Admission Physical Exam Findings: alcohol withdrawal sx Laboratory Last Values WBC 6.6 K/mm3 (4.0-10.0) 12/10/18 07:00 RBC 4.12 M/mm3 (4.00-5.60) 12/10/18 07:00 Hgb 12.8 GM/dL (11.7-16.9) 12/10/18 07:00 Hct 37.9 % (35.4-49) 12/10/18 07:00 MCV 92.0 fl (80-96) 12/10/18 07:00 MCH 31.0 pg (25.7-33.7) 12/10/18 07:00 MCHC 33.7 g/dl (32.0-35.9) 12/10/18 07:00 RDW 14.2 % (11.9-15.9) 12/10/18 07:00 Plt Count 224 K/MM3 (134-434) 12/10/18 07:00 MPV 9.5 fl (7.5-11.1) 12/10/18 07:00 Sodium 141 mmol/L (136-145) 12/10/18 07:00 Potassium 4.1 mmol/L (3.5-5.1) 12/10/18 07:00 Chloride 103 mmol/L (98-107) 12/10/18 07:00 Carbon Dioxide 34 mmol/L (21-32) H 12/10/18 07:00 Anion Gap 4 MMOL/L (8-16) L 12/10/18 07:00 BUN 7.4 mg/dL (7-18) 12/10/18 07:00 Creatinine 0.9 mg/dL (0.55-1.3) 12/10/18 07:00 Est GFR (CKD-EPI)AfAm 111.05 12/10/18 07:00 Est GFR (CKD-EPI)NonAf 95.81 12/10/18 07:00 Random Glucose 102 mg/dL (74-106) 12/10/18 07:00 Calcium 9.1 mg/dL (8.5-10.1) 12/10/18 07:00 Total Bilirubin 0.5 mg/dL (0.2-1) 12/10/18 07:00 AST 17 U/L (15-37) 12/10/18 07:00 ALT 19 U/L (13-61) 12/10/18 07:00 Alkaline Phosphatase 118 U/L (45-117) H 12/10/18 07:00 Total Protein 7.2 g/dl (6.4-8.2) 12/10/18 07:00 Albumin 3.5 g/dl (3.4-5.0) 12/10/18 07:00 Urine Color Yellow 12/10/18 07:30 Urine Appearance Clear 12/10/18 07:30 Urine pH 6.0 (5.0-8.0) 12/10/18 07:30 Ur Specific [place] 1.015 (1.010-1.035) 12/10/18 07:30 Urine Protein Negative (NEGATIVE) 12/10/18 07:30 Urine Glucose (UA) Negative (NEGATIVE) 12/10/18 07:30 Urine Ketones Negative (NEGATIVE) 12/10/18 07:30 Urine Blood Negative (NEGATIVE) 12/10/18 07:30 Urine Nitrite Negative (NEGATIVE) 12/10/18 07:30 Urine Bilirubin Negative (NEGATIVE) 12/10/18 07:30 Urine Urobilinogen 1.0 mg/dL (0.2-1.0) 12/10/18 07:30 Ur Leukocyte Esterase Negative (NEGATIVE) 12/10/18 07:30 RPR Titer Nonreactive (NONREACTIVE) 12/10/18 07:00 lab noted alert oriented x 3 speech clearly coherently Vital Signs Temperature 98.2 F 12/13/18 09:34 Pulse Rate 68 12/13/18 09:34 Respiratory Rate 20 12/13/18 09:34 Blood Pressure 139/91 12/13/18 09:34 O2 Sat by Pulse Oximetry (%) S1S2 regular clear lung bilaterally abdomen soft none tender patient is frustrated that pain and immobility make him extreme uncomfortable - Treatment Hospital Course: Detox Protocol Followed, Detoxed Safely, Responded well, Discharged Condition Good, Rehab Referral Accepted - Medication Discharge Medications: Ambulatory Orders Levothyroxine [Synthroid -] 300 mcg PO DAILY@0700 #30 tablet 12/26/16 - Diagnosis (1) Alcohol dependence with uncomplicated withdrawal Current Visit: Yes Status: Acute (2) H/O sleep apnea Current Visit: Yes Status: Chronic (3) History of bilateral hip replacements Current Visit: Yes Status: Chronic (4) History of positive PPD Current Visit: Yes Status: Resolved (5) Hypothyroid Current Visit: Yes Status: Chronic Qualifiers: Hypothyroidism type: acquired Qualified Code(s): E03.9 - Hypothyroidism, unspecified (6) Methadone maintenance therapy patient Current Visit: Yes Status: Chronic (7) Nicotine dependence Current Visit: Yes Status: Acute Qualifiers: Nicotine product type: cigarettes Substance use status: in withdrawal Qualified Code(s): F17.213 - Nicotine dependence, cigarettes, with withdrawal (8) Obesity (BMI 30.0-34.9) Current Visit: Yes Status: Chronic - AMA Did Patient Leave Against Medical Advice: No
== END 2018-12-13 15:15 | disposition short-term general hospital (02) | DRG 773 ==
LOC: YASAS 12:39 → Y3N 15:29
PROVIDERS: ADMIT Surgery; ATTEND Surgery
PROC: HZ2ZZZZ Detoxification Services for Substance Abuse Treatment (ICD-10-PCS; principal; 2018-12-09)
DX: F10.230 Alcohol dependence with withdrawal, uncomplicated (principal); F11.20 Opioid dependence, uncomplicated; F14.20 Cocaine dependence, uncomplicated; F17.210 Nicotine dependence, cigarettes, uncomplicated; E03.9 Hypothyroidism, unspecified; R00.0 Tachycardia, unspecified; R76.11 Nonspecific reaction to tuberculin skin test without active tuberculosis; G47.30 Sleep apnea, unspecified; R03.0 Elevated blood-pressure reading, without diagnosis of hypertension; M17.12 Unilateral primary osteoarthritis, left knee; M79.89 Other specified soft tissue disorders; E66.9 Obesity, unspecified; Z68.34 Body mass index [BMI] 34.0-34.9, adult; Z99.89 Dependence on other enabling machines and devices; Z96.643 Presence of artificial hip joint, bilateral
CPT/HCPCS: 36415; 71046-TC-FY; 80053; 81003; 85027; 86593; 93005; 93010

== ENCOUNTER 2018-12-13 15:42 | Emergency (ER) | payer BC ==
[2018-12-13 16:00] VITALS: BP 144/76; PULSE 56; TEMP 98.1; BMI 34.2
--- NOTE | 2018-12-13 16:11 | PDOC ---
Attending Attestation - Resident Resident Name: KarenTy - ED Attending Attestation I have performed the following: I have examined & evaluated the patient, The case was reviewed & discussed with the resident, I agree w/resident's findings & plan, Exceptions are as noted - HPI HPI: 53 yo M history EtOH abuse, opioid abuse (on methadone), discharged from [facility] today, c/o severe pain to BLE. He notes that he has had swelling in his feet for the past 4 days. He states they are intermittently numb, other times he feels sharp pain. He has noted that his socks are leaving hurd on his ankles for the past few days, this is new to him. - Physicial Exam PE: GENERAL: Somnolent, awakens to voice HEAD: No signs of trauma EYES: PERRLA, EOMI, sclera anicteric, conjunctiva clear ENT: Auricles normal inspection, hearing grossly normal, nares patent, oropharynx clear without exudates. Moist mucosa NECK: Normal ROM, supple, no lymphadenopathy, JVD, or masses LUNGS: Breath sounds equal, clear to auscultation bilaterally. No wheezes, and no crackles HEART: Regular rate and rhythm, normal S1 and S2, no murmurs, rubs or gallops ABDOMEN: Soft, nontender, normoactive bowel sounds. No guarding, no rebound. No masses EXTREMITIES: Normal range of motion, 2+ pitting edema to knees B/L. No clubbing or cyanosis. No cords, erythema, or tenderness. Cap refill in the toes is <2s. Feet are warm to palpation. +DP pulses. Lower legs are diffusely tender B/L NEUROLOGICAL: Cranial nerves II through XII grossly intact. Normal speech. Motor and sensation intact SKIN: Warm, dry, normal turgor, no rashes or lesions noted. - Medical Decision Making Pt with BLE swelling, new onset over the past few days. DDx includes new onset CHF (in light of history of EtOH abuse), DVT (less likely as the swelling is symmetrical). Cellulitis unlikely, as there is no erythema or warmth. Arterial occlusion unlikely in light of normal cap refill and temperature.
--- NOTE | 2018-12-13 16:33 | PDOC ---
History of Present Illness - General Chief Complaint: Edema Stated Complaint: ac leg pain Time Seen by Provider: 12/13/18 16:00 - History of Present Illness Initial Comments: 12/13/18 16:33 53M with pmh of hypothyroidism, and bilateral hip replacement, multiple substance abuse, on Methadone, . admitted on 12/09/18 for acute alcohol withdrawal sx management at [facility] discharged today presents with 10/10 pain with superficial touch, , swelling of both feet and legs for the past 4 days ( Since admission at [facility].) Was on Librium detox regiment, accepted for rehab at [facility] on 12/15/18 Patient very somnolent. Denies n/v/d, sob and chest pain. Past History - Past Medical History Allergies/Adverse Reactions: Allergies Allergy/AdvReac Type Severity Reaction Status Date / Time No Known Allergies Allergy Verified 12/09/18 14:17 Home Medications: Ambulatory Orders Capsaicin [Capsicum Hot Patch] 1 each TP DAILY PRN #20 adh..patch 12/13/18 Levothyroxine [Synthroid -] 300 mcg PO DAILY@0700 #30 tablet 12/13/18 Anemia: No Asthma: No Cancer: No Cardiac Disorders: No CVA: No COPD: No CHF: No Dementia: No Diabetes: No GI Disorders: No Disorders: No HTN: No Hypercholesterolemia: No Kidney Stones: No Liver Disease: No Seizures: No Thyroid Disease: No - Surgical History Abdominal Surgery: No Appendectomy: No Cardiac Surgery: No Cholecystectomy: No Lung Surgery: No Neurologic Surgery: No Orthopedic Surgery: Yes (right hip replacement in 01/2016/left hip replacement in 10/2015) - Reproductive History Testicular Surgery: No - Suicide/Smoking/Psychosocial Hx Smoking History: Unknown if ever smoked Have you smoked in the past 12 months: Yes Number of Cigarettes Smoked Daily: 7 'Breaking Loose' booklet given: 12/09/18 Hx Alcohol Use: No Drug/Substance Use Hx: No Substance Use Type: Alcohol, Cocaine, Heroin Hx Substance Use Treatment: Yes (detox, rehab, Currently on [facility]) Review of Systems - Review of Systems Able to Perform ROS?: Yes Is the patient limited Dutch proficient: No Constitutional: No: Symptoms Reported HEENTM: No: Symptoms Reported Respiratory: No: Symptoms reported Cardiac (ROS): No: Lightheadedness ABD/GI: No: Symptoms Reported : No: Symptoms Reported Musculoskeletal: Yes: See HPI Integumentary: Yes: See HPI Neurological: No: Symptoms reported All Other Systems: Reviewed and Negative *Physical Exam - Vital Signs Last Vital Signs Temp Pulse Resp BP Pulse Ox 98.1 F 56 L 19 144/76 98 12/13/18 15:58 12/13/18 15:58 12/13/18 15:58 12/13/18 15:58 12/13/18 15:58 - Physical Exam General Appearance: Yes: Mild Distress, Intoxicated HEENT: positive: EOMI, MICHAEL, Normal ENT Inspection Respiratory/Chest: positive: Lungs Clear, Normal Breath Sounds. negative: Chest Tender, Respiratory Distress Cardiovascular: positive: Regular Rhythm, Regular Rate, S1, S2 Gastrointestinal/Abdominal: positive: Normal Bowel Sounds, Protuberent, Hernia ( abdominal). negative: Tender Musculoskeletal: positive: Normal Inspection. negative: CVA Tenderness Extremity: positive: Normal Capillary Refill, Pedal Edema (2+ b/l), Swelling Integumentary: positive: Normal Color, Dry, Warm ED Treatment Course - LABORATORY CBC & Chemistry Diagram: 12/13/18 17:00 12/13/18 17:00 - RADIOLOGY Radiology Studies Ordered: Category Date Time Status CXRPORT [CHEST X-RAY PORTABLE*] [RAD] Stat Radiology 12/13/18 16:24 Ordered DUPLEX VASCUL US-2LEGS [US] Stat Ultrasound 12/13/18 16:22 Ordered Medical Decision Making - Medical Decision Making 12/13/18 17:02 53m with multisubstance abuse disorder coming [facility] with b/l leg swelling and pain./ CHf vs DVT vs neuropathy. 12/13/18 17:29 Will obtain basic labs, bnp, 12/13/18 18:52 No DVT seen on duplex in either legs. 12/13/18 18:53 No abnormal bnp. Elevated TSh, 29, no much different from last one. Patient says it used to be "149". Ok to discharge. Patient is admitted and has a bed at [facility]. Follow up with referred Golf Technician and primary Physician tomorrow. *DC/Admit/Observation/Transfer Diagnosis at time of Disposition: Pain in both feet - Discharge Dispostion Disposition: HOME Condition at time of disposition: Stable Decision to Admit order: No - Referrals - Patient Instructions Printed Discharge Instructions: Peripheral Neuropathy, DI for Peripheral Neuropathy, Capsaicin Patch May Improve Painful Diabetic Peripheral Neuropathy Symptoms Additional Instructions: Follow up with Dr. Be, endrocrinologist and your primary care physician tomorrow. Do not forget that you are admitted to [facility] on The of this month, in less than 2 days for rehab. Come back to the emergency department for any new, worsening or concerning symptom. - Post Discharge Activity
[2018-12-13 17:04] LABS: BASO % 0.6 % (0-2.0); EOS % 4.2 % (0-4.5); HEMATOCRIT 34.9 % (35.4-49); HEMOGLOBIN 11.9 GM/dL (11.7-16.9); LYMPH % 27.1 % (8-40); MCH 31.2 pg (25.7-33.7); MEAN PLT VOLUME 9.1 fl (7.5-11.1); MONO % 3.7 % (3.8-10.2); NEUT % 64.4 % (42.8-82.8); PLATELET COUNT 196 K/MM3 (134-434); RDW 13.9 % (11.9-15.9); WHITE BLOOD COUNT 6.3 K/mm3 (4.0-10.0)
[2018-12-13 17:34] LABS: ALBUMIN 3.4 g/dl (3.4-5.0); BILIRUBIN,TOTAL 0.6 mg/dL (0.2-1); BLOOD UREA NITROGEN 9.6 mg/dL (7-18); CALCIUM 8.8 mg/dL (8.5-10.1); CREATININE 0.8 mg/dL (0.55-1.3); TOT PROT 7.1 g/dl (6.4-8.2)
[2018-12-13 17:38] LABS: N-TERMINAL BNP 20.5 pg/ml (5-125)
== END 2018-12-13 20:48 | disposition home or self-care (01) ==
LOC: JER 15:42
DX: M79.671 Pain in right foot (principal); M79.672 Pain in left foot; F11.20 Opioid dependence, uncomplicated; E03.9 Hypothyroidism, unspecified; Z96.643 Presence of artificial hip joint, bilateral
CPT/HCPCS: 36415; 71045-TC-FY; 80053; 83880; 84443; 84484; 85025; 93970-TC; 99282-25